=== PATIENT | female | born 1935 | race Caucasian/White ===

== ENCOUNTER 2022-09-13 08:47 | Inpatient (IN) | payer MEDICARE, SELFPAY ==
[2022-09-13] VITALS (130 sets, daily range): BP systolic 86–166; BP diastolic 42–107; PULSE 47–98; RESP 12–29; TEMP 36.8; O2SAT 87–98
[2022-09-13] MEDS: nitroglycerin drip 50 MG/250 ML PREMIX IV (09:00)
--- NOTE | 2022-09-13 09:27 | ECG_ITS ---
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 Measurements Intervals [place] Rate: 79 P: 27 MN: 256 QRS: -6 QRSD: 82 T: 102 QT: 394 QTc: 452 Interpretive Statements SINUS RHYTHM WITH FIRST DEGREE AV BLOCK NONSPECIFIC T-WAVE ABNORMALITY No previous ECG available for comparison Electronically Signed On 09-14-2022 0:24:22 CDT by Dane Calderón M.D. [id number]
--- NOTE | 2022-09-13 09:27 | USCV_ITS ---
Cachorro Sonya Age: 86 Gender: F : 1935 Exam Date: 09/13/2022 10:01 Ordering Phys: Dane Calderón MD ([email or web address]) Technologist: LUIS Exam Location: [facility] Indication: UAP BP: 127 / 57 HR: 76 Rhythm: Sinus Technical Quality: Adequate MEASUREMENTS (Male / Female) Normal Values 2D ECHO LVOT Diameter 2.0 cm LV Ejection Fraction MOD 2C 68.4 % LV Ejection Fraction 2C AL 71.4 % LA Diameter 3.0 cm LA Width 2.9 cm LA Height 5.7 cm RA Width 3.0 cm RA Height 3.9 cm Aorta at Sinotubular Diameter 1.8 cm IVC Diameter 1.9 cm M-MODE Aortic Annulus Diameter 2.9 cm LA Ao Ratio MM 1.0 MV E Point Septal Separation 0.7 cm DOPPLER AV Peak Velocity 194.5 cm/s LVOT Peak Velocity 80.0 cm/s AV Area Cont Eq vti 1.2 cm squared AV Area Cont Eq pk 1.3 cm squared MV Peak Velocity 142.0 cm/s MV Area PHT 5.0 cm squared Mitral E to A Ratio 0.6 MV E' Velocity 42.5 cm/s Mitral E to MV E' Ratio 9.6 Mitral E to LV E' Lateral Ratio 7.2 Mitral E to LV E' Septal Ratio 14.4 TR Peak Velocity 163.4 cm/s TR Peak Gradient 10.7 mmHg TR Mean Velocity 119.4 cm/s TR Mean Gradient 6.2 mmHg TR Velocity Time Integral 41.8 cm TV Peak E Velocity 86.0 cm/s Right Atrial Pressure 3.0 mmHg Pulmonary Artery Systolic Pressu 13.7 mmHg PV Peak Velocity 104.0 cm/s RV Acceleration Time 0.1 s RV Ejection Time 0.3 s RV AcT/ET 0.4 FINDINGS Left Ventricle Normal left ventricular size and systolic function, EF 75 %. Grade I/IV diastolic dysfunction (abnormal relaxation filling pattern), normal to mildly elevated filling pressures. Right Ventricle The right ventricle is normal in size and function. Right Atrium The right atrium is normal in size. Left Atrium Mildly increased left atrial size. Mitral Valve Trace mitral valve regurgitation. Aortic Valve Thickened aortic valve. Aortic valve sclerosis. Tricuspid Valve No gross abnormalities noted Pulmonic Valve Pulmonic valve not well visualized. Pericardium Normal pericardium without effusion. Aorta Normal ascending aorta dimension. IVC Normal inferior vena cava. CONCLUSIONS Normal left ventricular size and systolic function, EF 75 %. Grade I/IV diastolic dysfunction (abnormal relaxation filling pattern), normal to mildly elevated filling pressures. Mildly increased left atrial size. Trace mitral valve regurgitation. Features of aortic valve sclerosis with a peak velocity of 1.94 m/s There is no pericardial effusion. There are no intracardiac masses. No similar previous studies are available for comparison Dr Dane Calderón MD FAC (Electronically Signed) Final Date: 13 September 2022 12:13 S
--- NOTE | 2022-09-13 09:35 | PM.HP ---
Providers/Chief Complaint Admitting Physician: Dane Calderón MD Primary Care Provider: Melissa Baker MD Chief Complaint: Chest Pain History of Present Illness Sonya Ivory is a 86 year old female, transferred to our institution from [facility] emergency room where she presented with complaints of a prolonged episode of chest pain. A provisional diagnosis of unstable angina was made by the ER physician. I was contacted at that point for her to be transferred to our facility for further evaluation management. Ms. Ivory has no similar past medical history. She is a smoker, smokes half to 1 pack a day for the last more than 50 years. For the last 1 week, she been having episodes of chest pain lasting anywhere from 5 to 30 minutes. Last night around 1:00, she woke up with chest pain. The pain started in the left shoulder, radiated to the left side of the neck, to the jaw, to the back between the shoulder blades and then the front. The intensity of the pain was almost 10/10. She was given Nitropaste from the chest wall by the emergency room. Apparently her blood pressure dropped. She was treated with a IV morphine and oxygen. The symptoms gradually subsided. According the patient, she might have had the pain lasting for a total of 2 hours or so. She apparently had recurrent episodes of chest pain while being in the emergency room. For this reason, the ER physician contacted me. The EKG showed normal sinus rhythm with nonspecific ST-T changes in the high lateral leads. Poor R wave progression. Her troponin I's were negative for myocardial injury. Her proBNP was elevated to 950. Her urinalysis showed positive nitrates and the WBCs were too numerous to count. Her white cell count was 12.5 thousand. Hemoglobin hematocrit were within normal limits. PT/INR were within normal limits. BUN and creatinine were 15 and 0.9. This patient has no previous history for coronary disease, myocardial infarction or congestive heart failure. She had 4 episodes of chest pain prior to the last night episode. Each one of them were more or less similar quality but less severe. They were lasting anywhere from 15 to 30 minutes. They may occur with or without exercise. She has no significant family history for atherosclerotic heart disease. She has been fairly active and lives independently. She is not taking any medications on a regular basis at home. According to ER physician, her blood pressure one time went up to 190, when she had the pain. Currently the blood pressure is in the normal range. Review of Systems Narrative: CONSTITUTIONAL: No fever or chills. EYES: No blurring of vision or other visual disturbances lately. ENT: No hoarseness of voice, auditory disturbances or sore throat. CARDIOVASCULAR: As mentioned above. RESPIRATORY: No significant cough. GASTROINTESTINAL: No hematemesis or melena. GENITOURINARY: No dysuria or hematuria. INTEGUMENTARY: No skin rashes or history of skin cancer. NEURO: No transient ischemic attacks or amaurosis. PSYCHIATRIC: No history of psychosis or major depression. HEMATOLOGIC: No bleeding disorders or significant anemia. ENDOCRINE: No history of polyuria or polydipsia. MUSCULOSKELETAL: No recent joint pain or swelling. ALLERGY/IMMUNOLOGY: As mentioned above. Medications/Allergies Home Medications Medication Instructions Recorded Confirmed Last Taken Type miscellaneous medical supply See Rx Instructions miscellaneous 03/16/22 09/13/22 Unknown Rx .COMPLEX #1 ea Vitamin D3 Liquid See Rx Instructions .Route .COMPLEX 09/13/22 09/13/22 Unknown History ascorbic acid-ascorbate See Rx Instructions .Route .COMPLEX 09/13/22 09/13/22 Unknown History calcium-ascorbate sod 500 mg/15 mL oral liquid (Vitamin C) aspirin 325 mg tablet 325 mg PO Q4H PRN Headache 09/13/22 09/13/22 Unknown History cyanocobalamin (vitamin B-12) See Rx Instructions .Route .COMPLEX 09/13/22 09/13/22 Unknown History 1,000 mcg/mL oral drops (Vitamin B-12) Allergies Allergy/AdvReac Type Severity Reaction Status Date / Time naproxen Allergy ALGY-Rash Verified 09/13/22 13:18 PFSH Acute PFSH: Social History Smoking and tobacco status: current every day smoker cigarettes Years cigarettes smoked: 60 Alcohol intake: never Vitals/I&O/Wt Last Vital Signs O2 Del Method 09/13/22 09:00 Weight last 48 hrs Weight 160 lb 14.999 oz Physical Exam Narrative: GENERAL: The patient is alert and oriented times three. Not in any acute distress. HEENT: No significant pallor, icterus or lymphadenopathy.Oral cavity: There are no mucous membrane lesions. Fundus is not visualized NECK: Trachea appears to be central. No masses noted. No JVD or thyromegaly appreciated. RESPIRATORY: Chest is symmetrical. No intercostals muscle retraction or any accessory muscle activation. There is no chest wall tenderness. Breath sounds are heard bilaterally. No rales or rhonchi heard. No evidence of any consolidation. BREASTS: Deferred. HEART: The heart sounds are normal. No S3 or S4. No significant murmurs. No pericardial rub ABDOMEN: No vessel pulsations or distention. No tenderness. No organomegaly appreciated. Bowel sounds are normally heard. : Deferred. RECTAL: Deferred. LYMPHATIC: No lymphadenopathy noted in the neck. EXTREMITIES: No edema or cyanosis. No clubbing. MUSCULOSKELETAL: No acute joint deformities or swelling SKIN: Left forearm has an area of ecchymosis, developed when the EMT tried to insert an IV. NEUROPSYCHIATRIC: The patient is alert and oriented x3. Appears to be in a good mood. No tremors or rigidity noted. Data : 09/13/22 09:55 CXR: My impression: Reported as Radiologist's impression: Reported as normal cardiac silhouette with no lung infiltrates. Atherosclerotic changes in the aorta. EKG 1: My Interpretation: Normal sinus rhythm with a heart rate of [address]-T changes in the high lateral leads, 1 and aVL. Poor R wave progression. [address] changes in lead V5 and V6. 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 The medical Normal cardiac enzymes rule out myocardial infarction. An echocardiogram would be helpful to evaluate the LV function and rule out renal pathology. Patient be treated with a subcu Lovenox, beta-wen, aspirin and statin. She may require a cardiac catheterization, to further evaluate the coronary status. After reviewing the echocardiogram and the blood test, further management decisions will be made. Clinically she has no evidence of any aortic dissection. The chest x-ray did not reveal any dilatation of the aorta. The fact that she been having similar chest pain off and on for for the last 1 week also may speak against a PE. She has no significant shortness of breath or hypoxia. Her oxygen saturation is 94% on room air. (2) Elevated blood pressure reading: Currently her blood pressure is in the normal range. Her blood pressure will be closely monitored on telemetry. (3) Elevated brain natriuretic peptide (BNP) level: This is suggestive of LV strain. She has no evidence of any overt heart failure. We will continue to monitor her clinical status. (4) UTI (urinary tract infection): She has borderline elevation of the white cell count and WBCs too numerous to count in the urine. I may repeat a CBC and a urinalysis. Urine will be sent for culture and sensitivity. Will be started appropriately biotics. Plan We also will be checking the thyroid profile and lipid profile. Based on the clinical progress and the results of the above, further management decisions will be made. Attestations Medical Necessity Statement*: Patient may require at least 2 midnight stay for further management of her condition. Coding Level of Care Code Acute Wide Area Network Systems Administrator for Raza Horan History Detailed Exam Detailed Medical Decision Making High Complexity Diagnoses 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 I25.110 Elevated blood pressure reading R03.0 Elevated brain natriuretic peptide (BNP) level R79.89 UTI (urinary tract infection) N39.0
[2022-09-13 10:04] LABS: Basophils # 0.1 10^3/uL (0.0-0.1); Basophils % 0.8 %; Eosinophils # 0.3 10^3/uL (0.0-0.8); Eosinophils % 3.2 %; Hematocrit 43.4 % (37.0-47.0); Hemoglobin 14.2 g/dL (11.5-15.3); Lymphocytes % 19.9 %; Mean Corpuscular HGB Conc 32.7 g/dL (30.0-36.0); Mean Corpuscular Hemoglobin 33.5 pg (28.0-34.0); Mean Corpuscular Volume 102.4 fl (81-99); Monocytes # 0.8 10^3/uL (0.2-0.9); Monocytes % 7.5 %; Neutrophils # 6.89 10^3/uL (1.8-7.7); Neutrophils % 68.2 %; Nucleated Red Blood Cells % 0 %; Platelet Count 228 10^3/cmm (130-400); Red Blood Count 4.24 10^6/uL (4.1-5.3); Red Cell Distribution Width 12.2 % (12.1-15.1); White Blood Count 10.1 10^3/uL (4.0-10.0)
[2022-09-13] MEDS: D5-NS 0.45% + KCL 20 mEq 20 MEQ/1,000 ML BAG 75 MEQ IV ×2 (10:05→22:36)
[2022-09-13] MEDS: aspirin 81 mg EC Tablet 162 MG PO (10:08)
[2022-09-13 10:27] LABS: Bilirubin Urine Neg (Negative); Blood Urine Neg (Negative); Glucose Urine UA Norm (Normal); Ketones Urine Negative (Negative); Nitrate Urine Positive (Negative); Protein Urine Neg (Negative); Urine Appearance Clear (CLEAR); Urine Color Yellow (Yellow); Urobilinogen Urine Norm (Negative); pH Urine 5 (5-7)
[2022-09-13 10:28] LABS: Add Urine Microscopic? YES; Leukocyte Esterase Urine 1+ (Negative)
[2022-09-13 10:34] LABS: Troponin T (5th) Once 34 ng/L (0-10)
[2022-09-13 10:43] LABS: Cholesterol 168 mg/dL (0-200); HDL Cholesterol 41 mg/dL (60-100); LDL Cholesterol Calculated 104 mg/dL (50-129); LDL HDL Ratio 2.54 RATIO (0.00-3.22); Thyroid Stimulating Hormone 5.34 uIU/mL (0.27-4.20); Triglycerides 117 mg/dL (0-150)
[2022-09-13 10:45] LABS: RBC Urine 0-4 /hpf (0-2)
[2022-09-13 10:46] LABS: Add Urine Culture? Yes; Bacteria Urine M /hpf; Squamous Epithelial Cell Urine 0-4 /hpf (0-5)
--- NOTE | 2022-09-13 12:06 | PC.CHAP ---
Pastoral Care Encounter/Spiritual Assessment Type of Contact [] Declined computed tomography technologist visit [] Patient/Family/Request visit [] Outpatient visit [] Follow-up visit [] Physician referral [] Code/Alert [] Routine visit [] Staff referral [] Actively dying [] Patient sleeping [] Family support [] [] Out of room [] Palliative care [] [] Receiving care in room [] Pre-surgical visit [] Trauma [] Long length of stay [x] ICU visit [] Other: Relational/Emotional Strength [] Patient feels connected with others/family/visitors/staff [] Distress [] Loneliness/isolation [] Abandonment Spirituality of Patient [] Person of Litzy [] Attends Yarsani of their Litzy [] Believes in Prayer [] Reads Bible or Anabaptist materials [] There are Spiritual issues to be addressed Unarmed Security Officer Interventions [x] Prayer [] Active listening [] Non-anxious presence [] Spiritual/emotional support [] Crisis/trauma care [] Spiritual counseling [] Bereavement support [] Provided bereavement packet [] Provided Bible/devotional materials [] Provided toy/stuffed animal, coloring book to patient or family member [] Provided Communion [] Anointing/[place] [] Salvation [] Completed spiritual assessment [] Other: Impact on Illness or Injury [] Angry [] Fearful [] Anxious [] Often cries [] Exhaustion [] Unable to work [] Unable to attend catholic [] Unable to walk/stand [] Unable to read [] Unable to drive [] Unable to eat/drink [] Unable to sleep [] Unable to be with family [] Patient intubated [] Other: Summary Time spent with patient
--- NOTE | 2022-09-13 13:25 | PC.PHAR ---
PT STATES SHE TAKES NO RX MEDICATIONS-PT STATES JUST TAKES OTC MEDICATIONS PRN
[2022-09-13] MEDS: metoprolol tartrate 25 mg Tablet PO (13:41)
[2022-09-13] MEDS: enoxaparin 80 mg/0.8 mL Syringe 75 MG SUBCUT (17:16)
--- NOTE | 2022-09-13 17:39 | PC.NURSE ---
Patient resting in bed currently with nitro gtt running at 10mcg. No complaints of chest pain. Metoprolol given per Dr. Calderón at 1341 PO, patient remains bradycardic ranging from 47-62, Called Dr. Calderón to inform him, he's okay with rate, wants to be called before giving night time dose. Patient will be NPO after midnight due to scheduled LHC tomorrow.
--- NOTE | 2022-09-13 17:43 | PC.NURSE ---
Nitro gtt running upon arrival from [facility] at 10mcg/min
[2022-09-13] MEDS: cefTRIAXone 1,000 MG in sodium chloride 0.9% (plus) 50 ML 100 MG IV (18:09)
[2022-09-13 19:00] LABS: Troponin T (5th) Once 31 ng/L (0-10)
--- NOTE | 2022-09-13 20:23 | PC.NURSE ---
2019 Dr Tucker contacted concerning patient's scheduled (2099) 25 mg PO metoprolol medication; instructed to hold medication at this time
[2022-09-13 21:22] LABS: Free T4 Free Thyroxine 1.09 ng/dL (0.82-1.77)
[2022-09-13] MEDS: temazepam 15 mg Capsule PO (21:39)
[2022-09-14] VITALS (58 sets, daily range): BP systolic 87–165; BP diastolic 39–72; PULSE 46–90; RESP 6–32; TEMP 36.5–36.8; O2SAT 88–100
[2022-09-14 03:15] LABS: Basophils % 0.2 %; Eosinophils # 0.2 10^3/uL (0.0-0.8); Eosinophils % 1.7 %; Hematocrit 42.7 % (37.0-47.0); Hemoglobin 13.8 g/dL (11.5-15.3); Mean Corpuscular HGB Conc 32.3 g/dL (30.0-36.0); Mean Corpuscular Hemoglobin 33.4 pg (28.0-34.0); Mean Corpuscular Volume 103.4 fl (81-99); Mean Platelet Volume 12.3 fL (7.4-10.4); Monocytes # 0.9 10^3/uL (0.2-0.9); Monocytes % 7.4 %; Neutrophils # 9.42 10^3/uL (1.8-7.7); Neutrophils % 74.2 %; Nucleated Red Blood Cells % 0 %; Platelet Count 230 10^3/cmm (130-400); Red Blood Count 4.13 10^6/uL (4.1-5.3); Red Cell Distribution Width 12.2 % (12.1-15.1); White Blood Count 12.7 10^3/uL (4.0-10.0)
[2022-09-14 03:47] LABS: Anion Gap 10.5 (5-19); Blood Urea Nitrogen 16 mg/dL (8-23); C Reactive Protein 30.3 mg/L (0.0-4.9); Calcium 8.6 mg/dL (8.5-10.5); Carbon Dioxide 24 mmol/L (22-29); Chloride 103 mmol/L (98-107); Glucose 113 mg/dL (65-115); Osmolality Calculated 278 mOsm/kg (285-295); Potassium 4.5 mmol/L (3.5-5.1); Sodium 133 mmol/L (136-145)
[2022-09-14 03:51] LABS: Procalcitonin 0.02 ng/mL (0-0.5)
--- NOTE | 2022-09-14 06:52 | PC.NURSE ---
Pt to general labor.
--- NOTE | 2022-09-14 06:55 | PC.NURSE ---
Bedside report completed with FREEMAN Torres
--- NOTE | 2022-09-14 07:00 | XACV_ITS ---
Exam Room: [facility] Ht: 163 cm Wt: 73 kg BSA: 1.83 m2 Gender: Female : 1935 Any Known Allergies: Other Exam Priority: Routine Procedure(s): Procedure Description: Diagnostic procedure Procedure Description: PCI procedure Procedure Description: Left Heart Catheterization Procedure Description: Drug Eluting Coronary Stent Procedure Description: Coronary Angiography Diagnostic Cath Status: Elective Diagnostic Findings * Left main is a medium caliber vessel with no significant stenotic lesions. * The left anterior descending artery is a medium caliber vessel which appears to wrap around the LV apex minimally. The proximal LAD was found to have a tight 98% stenosis. The mid and distal LAD was found to have minimal intimal irregularities. * The left circumflex artery is a medium caliber vessel which appeared to give off a high obtuse marginal branch. Mild diffuse disease is noted in the proximal segment of the artery. No other significant stenotic lesions. * The right coronary artery has a low and posterior takeoff. The artery was found to have no significant stenotic lesions. Some intimal irregularities are noted in the distal segment of the artery. PCI Status: Urgent PCI LVEF Assessed: No PCI Indication: NSTE - ACS Interventional Findings * The proximal LAD was primarily stented with a 3 mm x 12 mm drug-eluting stent. The end result was excellent. Decision for PCI with Surgical Consult: No PCI for Multi-vessel Disease: No Conclusions 1. This 86-year-old white female with no significant past medical history, presented with a features of unstable angina and non-ST elevation myocardial infarction. Echocardiogram was unremarkable. EKG showed some nonspecific ST-T changes. In view of the patient's presenting symptoms and the abnormal objective findings. for further evaluation of the coronary status, a cardiac catheterization was recommended. Patient underwent left heart catheterization with left and right coronary angiogram today. The findings are as follows.. 2. The findings are as follows. 3. Left main is a medium caliber vessel with no significant stenotic lesions. High-grade 98% gnosis in the proximal LAD. Mild diffuse disease in the other vessels. The right coronary artery was found to have a low and posterior takeoff. LVEDP was 20 mmHg. Patient angiogram findings, it was thought to be appropriate to consider PCI of the LAD lesion. I reviewed and discussed the cardiac catheterization data with the Dr. Tucker. Dr. Tucker concurred with this plan and took over further management of this patient at this point. Diagnostic RX Recommendation: PCI w/o planned CABG LV EDP: 17 mmHg Left Ventriculography Findings: * LV gram was not performed because of the concern about the dye overload. LVEDP was 70 mmHg. Pressures Phase:Rest AO : 124 / 50 ( 78 ) @ 8:22:00 AM 92 / 59 ( 75 ) @ 8:24:00 AM 163 / 58 ( 102 ) @ 8:34:00 AM 161 / 57 ( 99 ) @ 8:34:00 AM 113 / 41 ( 68 ) @ 8:55:00 AM LV : 153 / -19 / 17 @ 8:33:00 AM 153 / -17 / 15 @ 8:34:00 AM Valves Phase:DefaultPhase AV : 0.0 @ 8:19:14 AM AV Mean Gradient: 0.0 @ 8:19:14 AM Clinical Evaluation EBL: 5mL-10mL Procedural Details Pre-Procedure Time Out. Identified patient by full name and date of as verbalized by the patient/guarantor. Does the consent match the physician's order: Yes. Accurate & Complete Informed Consent: Yes. Inpatient/Outpatient History & Physical on Chart: Yes. If H&P is completed, is and addenduem needed: No; If yes, is the addendum complete: N/A. Visualize and Verify Site with Patient/Guarantor: N/A. Relevant Radiology Images available: Yes. Pre-op teaching completed and patient verbalized understanding. The risks, benefits, and alternatives of sedation and/or procedure were discussed by physician. The patient agrees to continue. Procedure started. Current Diagnosis : NSTEMI. [facility] Clinical Fraility Score: 3: Managing Well. Bellman Driver Indications: ACS > 24 hours. Chest Pain Symptom Assessment: Atypical Angina. Correct patient, site and procedure confirmed by cath team. Current diagnosis: NSTEMI. PERRLA. Strong, equal hand lining finisher bilaterally. Lungs clear x 5 lobes. IV Site on Arrival: 18 gauge in the left anticubital. IV Fluids: 0.9% NaCl at KVO. 0 mL infused prior to lab coordinator. Oxygen started at 2liters/min via nasal canula. bilateral groins was prepped with chloroprep then draped in the usual sterile fashion. Physician notified. Baseline sample Acquired. HR: 72 BPM. Physician arrived. Physician scrubbed in. Immediate Pre-Procedure Time Out. Correct Patient: Yes; Correct Procedure: Yes; Correct Site: Yes; Correct Patient Position: Yes; Correct Supplies: Yes; Dried Flammable Prep: Yes; Blood Products Available: N/A;. Lidocaine 1% infiltrated to the right groin. Arterial access obtained with micropuncture set. A 5 argent[place] JL4 catheter in over wire. Multiple views taken of left coronary artery. Catheter removed over the standard wire. A 5 arg[place] JR4 catheter in over wire. Multiple views taken of right coronary artery. Catheter removed over the standard wire. A 5 argentine Angled Pig catheter in over wire. EDP Sample taken: LV 153/-20,17; HR: 85 BPM; SpO2: 96%. Pullback taken: LV 153/-18,15; AO 163/58(102); Mean: 0mmHg, Peak to Peak: 0mmHg, SEP: 7sec/min; HR: 85 BPM; SpO2: 96%. Catheter removed over the standard wire. Physician scrubbed out. Side port of sheath attached to Normal Saline flush at KVO to maintain patency. Dr. Tucker scrubbed in. Sheath upsized to a 6 Fr. 6 arg[place] XB 3 guide catheter was inserted over the wire. [place] guidewire was advanced through the guide catheter to lesion in the prox LAD. Inflation Number : 1 Onelia Ledezma JOSE 3.0X12 CHANTEL -Lot Number# [id number] EXP: 09/12/2024 was prepped and advanced across the Prox LAD. The stent was deployed at 16 JESUS for 0:31 seconds. Stent balloon out over wire. Wire out. Guide catheter out. A Suture was successful obtaining hemostatsis at the Right Femoral artery insertion site. Arterial sheath flushed and connected to tranducer and pressure bag with heparinized saline. Post Procedure: Pulses reassessed and unchanged. PERRLA. Strong, equal hand lining finisher bilaterally. No VTE prophylaxis required. Total IV fluids: 200 mL. PCI Indication: NSTE. Complications: None. Estimated blood loss: 5mL-10mL. Responsiveness - Normal response to verbal stimuli; alert and oriented, PERRLA. Airway - Unaffected, no intervention required; spontaneous ventilation. Circulation: W/N/L, pulses unchanged. Nausea/Vomiting: No. Procedure completed. Vital chart was stopped. Patient transferred by bed to ICU. Access Site Site: Right Femoral artery Sheath Size: 5 Fr Hemostasis Method: Suture Hemostasis Success: Successful Procedure Medications Start: 7:11 AM Stop: 7:11 AM Medication: Versed Amount: 1 mg Route: I.V. Start: 7:11 AM Stop: 7:11 AM Medication: Fentanyl Amount: 50 mcg Route: I.V. Start: 7:20 AM Stop: 7:20 AM Medication: 0.9% Saline Amount: 250 ml Route: I.V. bolus Start: 7:29 AM Stop: 7:29 AM Medication: Heparin Amount: 1500 units Route: I.V. Start: 7:40 AM Stop: 7:40 AM Medication: Versed Amount: 1 mg Route: I.V. Start: 7:40 AM Stop: 7:40 AM Medication: Fentanyl Amount: 50 mcg Route: I.V. Start: 7:53 AM Stop: 7:53 AM Medication: Heparin Amount: 3500 units Route: I.V. Start: 8:08 AM Stop: 8:08 AM Medication: Plavix Amount: 600 mg Route: P.O. I, the attending physician, have reviewed and verified all procedure medications. Yes, all medications given per verbal order History/Risk Factors Hypertension: No Dyslipidemia: No Peripheral Arterial Disease (PAD): No Myocardial Infarction (NV): No Obesity: No Renal Disease: No Prior Interventions PCI: No CABG: No Valve Surgery: No Report Signatures Diagnostic Workflow Finalized by Dr Dane Calderón MD [facility] on 09/14/2022 11:41 PM Interventional Workflow Finalized by Dr. Jaden Tucker MD on 09/14/2022 08:24 AM
--- NOTE | 2022-09-14 07:06 | P.HPUD_ITS ---
Surgery/Procedure H&P Update DATE OF PROCEDURE: September 14, 2022 DATE H&P PERFORMED: 09/13/22 H&P UPDATE INFORMATION: I have reviewed H&P completed within last 30 days, I have examined patient prior to procedure and No changes to prior documentation PREOP DIAGNOSIS: NSTEMI PRIMARY INDICATION FOR PROCEDURE: NSTEMI/UAP PLANNED PROCEDURE: Operation Date: 09/14/22 07:00 Proposed Procedures p [facility] 55248,R07.9,I44.20(Left) - Dane Calderón MD PATIENT REASSESSED PRIOR TO SEDATION, WITH NO CHANGE NOTED: Yes PHYSICAL EXAM: alert, oriented x 3 and clear to auscultation bilaterally AIRWAY EVAL/ANESTHESIA PLAN: normal airway, see other exam findings, ASA II, Local Anesthesia, Risks, benefits & alternatives of sedation and/or procedure discussed and Patient agrees to continue as planned
--- NOTE | 2022-09-14 08:23 | PC.NURSE ---
Pt back from laboratory administrative director. No change in heart rhythm. Sheath in right groin. No bleeding or hematomas noted. Right dorasalis pedal pulse palpable.
--- NOTE | 2022-09-14 09:13 | PM.CONSULT ---
Providers/Reason For Consult Consulting Physician/Specialty*: Ekta Maddox, Internal Medicine Reason for Consult*: UTI Attending Physician: Dane Calderón MD Primary Care Provider: Melissa Baker MD History of Present Illness History of Present Illness Sonya Ivory is a 86 year old female with no significant past medical history except that she is half to 1 pack/day smoker for the last 50 years. She came to our hospital from [facility] emergency room complaining of prolonged episode of chest pain. Patient was admitted for unstable angina. Patient did have a urinalysis done at [facility] which showed positive nitrates and numerous WBCs to count. She was given 1 dose of IV Rocephin for she arrived at our facility. Hospitalist has been consulted for medical management for this patient. Patient states that she did have urinary symptoms dysuria and pelvic pain few weeks ago however it started to get better. She says right now she is asymptomatic. Urinalysis again positive at our facility. Urine culture is pending. She has been started on ceftriaxone. At this time patient denies any pain or pressure in pelvic area. She says she only has had 2 UTIs in her whole life and does not frequently get them. She is unsure how she may have caught one at this time. She denies any other medical problems at this time. She states she lives alone at home. Does not use oxygen at home either. Patient underwent cardiac catheterization today and received a drug-eluting stent to LAD. She is being seen postprocedure at this time. Medications/Allergies Home Medications Medication Instructions Recorded Confirmed Last Taken Type miscellaneous medical supply See Rx Instructions miscellaneous 03/16/22 09/13/22 Unknown Rx .COMPLEX #1 ea Vitamin D3 Liquid See Rx Instructions .Route .COMPLEX 09/13/22 09/13/22 Unknown History ascorbic acid-ascorbate See Rx Instructions .Route .COMPLEX 09/13/22 09/13/22 Unknown History calcium-ascorbate sod 500 mg/15 mL oral liquid (Vitamin C) aspirin 325 mg tablet 325 mg PO Q4H PRN Headache 09/13/22 09/13/22 Unknown History cyanocobalamin (vitamin B-12) See Rx Instructions .Route .COMPLEX 09/13/22 09/13/22 Unknown History 1,000 mcg/mL oral drops (Vitamin B-12) Allergies Allergy/AdvReac Type Severity Reaction Status Date / Time naproxen Allergy ALGY-Rash Verified 09/13/22 13:18 Current Medications Generic Name Dose Route Start Last Admin Trade Name [place] PRN Reason Stop Dose Admin Aspirin 162 mg 09/13/22 10:00 09/13/22 10:08 Aspirin 81 Mg Ec Tablet PO 162 mg DAILY DYLAN Administration Enoxaparin Sodium 75 mg 09/13/22 18:00 09/13/22 17:16 Enoxaparin 80 Mg/0.8 Ml Syringe SUBCUT 75 mg Q12H DYLAN Administration Potassium Chloride/Dextrose/Sod Cl 20 meq in 1,000 mls @ 75 mls/hr 09/13/22 09:30 09/13/22 10:05 D5-Ns 0.45% + Kcl 20 Meq IV 75 mls/hr .[id number] DYLAN Administration Nitroglycerin/Dextrose 50 mg in 250 mls @ 0 mls/hr 09/13/22 13:45 09/13/22 09:00 Nitroglycerin Drip IV 10 mcg/min .Q0M DYLAN 3 mls/hr Administration Protocol Per Protocol Ceftriaxone Sodium 1,000 mg/ 50 mls @ 100 mls/hr 09/13/22 18:15 09/13/22 18:09 Sodium Chloride IV 100 mls/hr Q24H DYLAN Administration Protocol PFSH Acute PFSH: Social History Smoking and tobacco status: current every day smoker cigarettes Years cigarettes smoked: 60 Alcohol intake: never Vitals/I&O/Wt Last Vital Signs Pulse 63 09/13/22 18:00 Resp 24 H 09/13/22 18:00 BP 126/60 09/13/22 18:00 Pulse Ox 95 09/13/22 18:00 O2 Del Method 09/13/22 10:17 O2 Flow Rate 2 09/13/22 10:17 09/13/22 09/13/22 09/13/22 06:59 14:59 22:59 Intake Total 240 / 240 240 / 480 Balance 240 / 240 240 / 480 Weight last 48 hrs Weight 73 kg Physical Exam Narrative: General: Alert oriented x3, patient seen laying in bed appearing comfortable at this time HEENT: Normocephalic, atraumatic, EOMI, breathing 2 L nasal cannula. Cardio: Regular rate rhythm, normal S1-S2, Respiratory: Good bilateral air entry, no wheezes no rhonchi appreciated GI: Abdomen soft, nontender, nondistended, bowel sounds +, pelvic. Nontender to palpation Behavior: Appropriate and cooperative Extremities: No lower extremity edema present. 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 Check lipid profile, TSH, hemoglobin A1c ? Continue IV ceftriaxone 1 g daily ? Leukocytosis most likely secondary to stress response versus UTI ? We will de-escalate antibiotics pending culture data. ? Continue IV antibiotics for now ? Rest of management as per primary team ? Continue patient on aspirin, Plavix, Lopressor 25 twice daily ? Patient appears euvolemic at this time. Echo reviewed. EF 75%. Grade 1 diastolic dysfunction present. -Check repeat labs CBC and BMP in AM. - Slight hyponatremia noted. Check urine sodium. Full code DVT prophylaxis: Patient was on therapeutic Lovenox. We will switch to DVT prophylaxis dose once okay with cardiology. Consult Attestations Medical Necessity Statement: Patient will need to stay in the hospital today for IV antibiotics. Pending culture data will de-escalate. Most likely will be stable for discharge from medical standpoint in a.m. 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
[2022-09-14] MEDS: ondansetron 2 mg/ML SDV 2 mL 4 MG IVP (09:20)
[2022-09-14] MEDS: acetaminophen 325 mg Tablet 650 MG PO (09:59)
[2022-09-14] MEDS: aspirin 81 mg Chew Tablet PO (10:00)
[2022-09-14] MEDS: metoprolol tartrate 25 mg Tablet PO ×2 (10:02→20:09)
[2022-09-14] MEDS: fentaNYL 50 mcg/mL INJ 2mL IVP (10:54)
--- NOTE | 2022-09-14 11:45 | PC.NURSE ---
RIght groin sheath removed intact. Pressure held hemostatis obtained. No hematomas or bleeding noted. Pt tolerated well. Gauze and biocclusive dressing applied. Pt intructed to continue to keep that right leg still.
--- NOTE | 2022-09-14 12:43 | PC.CHAP ---
Pastoral Care Encounter/Spiritual Assessment Type of Contact [] Declined outsoles channel opener visit [] Patient/Family/Request visit [] Outpatient visit [] Follow-up visit [] Physician referral [] Code/Alert [x] Routine visit [] Staff referral [] Actively dying [] Patient sleeping [] Family support [] [] Out of room [] Palliative care [] [] Receiving care in room [] Pre-surgical visit [] Trauma [] Long length of stay [x] ICU visit [] Other: Relational/Emotional Strength [] Patient feels connected with others/family/visitors/staff [] Distress [] Loneliness/isolation [] Abandonment Spirituality of Patient [] Person of Litzy [] Attends Hinduism of their Litzy [] Believes in Prayer [] Reads Bible or Denominational materials [] There are Spiritual issues to be addressed Luggage Attendant Interventions [x] Prayer [] Active listening [] Non-anxious presence [] Spiritual/emotional support [] Crisis/trauma care [] Spiritual counseling [] Bereavement support [] Provided bereavement packet [] Provided Bible/devotional materials [] Provided toy/stuffed animal, coloring book to patient or family member [] Provided Communion [] Anointing/[place] [] Salvation [x] Completed spiritual assessment [] Other: Impact on Illness or Injury [] Angry [] Fearful [] Anxious [] Often cries [] Exhaustion [] Unable to work [] Unable to attend anglican [] Unable to walk/stand [] Unable to read [] Unable to drive [] Unable to eat/drink [] Unable to sleep [] Unable to be with family [] Patient intubated [] Other: Summary Time spent with patient
--- NOTE | 2022-09-14 13:00 | PC.NURSE ---
Report given to FREEMAN Cardenas. Care transferred.
[2022-09-14] MEDS: sodium chloride 0.9% 1,000 ML 100 ML IV ×2 (15:09→23:13)
[2022-09-14 16:41] LABS: Partial Thromboplastin Time 28.6 SECONDS (23.9-36.7)
--- NOTE | 2022-09-14 17:24 | PM.PN ---
Subjective Subjective: The patient underwent a cardiac regurgitation this morning. 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 She underwent PCI of this lesion. Currently she seems to be stable. Medications: Medication Review Details: Current Medications Acetaminophen (Acetaminophen 325 Mg Tablet) 650 mg PO Q6H PRN PRN Reason: MILD PAIN Last Admin: 09/14/22 09:59 Dose: 650 mg Al Hydrox/Mg Hydrox/Simethicone (Ejkj-Pcq-Ziewdxvig-El 30 Ml Udc) 30 ml PO Q15M PRN PRN Reason: INDIGESTION Alprazolam (Alprazolam 0.5 Mg Tablet) 0.25 mg PO TID PRN PRN Reason: ANXIETY Aspirin (Aspirin 81 Mg Chew Tablet) 81 mg PO DAILY [facility] Last Admin: 09/14/22 10:00 Dose: 81 mg Atropine Sulfate (Atropine 1 Mg/Ml Sdv 1 Ml) 0.5 mg IVP PRN PRN PRN Reason: Symptomatic bradycardia Clopidogrel Bisulfate (Clopidogrel 75 Mg Tablet) 75 mg PO DAILY [facility] Fentanyl (Fentanyl 50 Mcg/Ml Inj 2ml) 50 mcg IVP PRN PRN PRN Reason: sheath pull Last Admin: 09/14/22 10:54 Dose: 50 mcg Ceftriaxone Sodium 1,000 mg/ (Sodium Chloride) 50 mls @ 100 mls/hr IV Q24H [facility]; Protocol Last Infusion: 09/14/22 15:09 Dose: Infused Sodium Chloride (Sodium Chloride 0.9%) 1,000 mls @ 100 mls/hr IV .Q10H [facility] Last Admin: 09/14/22 15:09 Dose: 100 mls/hr Magnesium Hydroxide (Magnesium Hydroxide 30 Ml Udc) 30 ml PO DAILY PRN PRN Reason: CONSTIPATION Metoprolol Tartrate (Metoprolol Tartrate 25 Mg Tablet) 25 mg PO BID@0900,2100 [facility] Last Admin: 09/14/22 10:02 Dose: 25 mg Naloxone HCl (Naloxone 0.4 Mg/Ml Sdv) 0.1 mg IVP Q2M PRN PRN Reason: RESPIRATORY RATE < 8/MIN Nitroglycerin (Nitroglycerin 0.4 Mg Sublingual Tablet) 0.4 mg SUBLINGUAL Q5M PRN PRN Reason: CHEST PAIN Ondansetron HCl (Ondansetron 2 Mg/Ml Sdv 2 Ml) 4 mg IVP Q6H PRN PRN Reason: NAUSEA AND VOMITING Last Admin: 09/14/22 09:20 Dose: 4 mg Temazepam (Temazepam 15 Mg Capsule) 15 mg PO BEDTIME PRN PRN Reason: INSOMNIA Last Admin: 09/13/22 21:39 Dose: 15 mg Vitals/I&O/Wt Last Vital Signs Temp 98.3 F 09/14/22 08:30 Pulse 46 L 09/14/22 14:00 Resp 10 L 09/14/22 12:45 BP 102/45 09/14/22 12:45 Pulse Ox 97 09/14/22 12:45 O2 Del Method 09/14/22 12:45 O2 Flow Rate 2 09/14/22 12:45 09/14/22 09/14/22 09/14/22 06:59 14:59 22:59 Intake Total 6 / 1577.75 880 / 880 50 / 930 Output Total 175 / 350 Balance -169 / 1227.75 880 / 880 50 / 930 Weight last 48 hrs Weight 164 lb 3.91 oz Weight 160 lb 14.999 oz Physical Exam Narrative: GENERAL: The patient is alert and oriented times three. Not in any acute distress. HEENT: No significant pallor, icterus or lymphadenopathy.Oral cavity: There are no mucous membrane lesions. Fundus is not visualized NECK: Trachea appears to be central. No masses noted. No JVD or thyromegaly appreciated. RESPIRATORY: Chest is symmetrical. No intercostals muscle retraction or any accessory muscle activation. There is no chest wall tenderness. Breath sounds are heard bilaterally. No rales or rhonchi heard. No evidence of any consolidation. BREASTS: Deferred. HEART: The heart sounds are normal. No S3 or S4. No significant murmurs. No pericardial rub ABDOMEN: No vessel pulsations or distention. No tenderness. No organomegaly appreciated. Bowel sounds are normally heard. : Deferred. RECTAL: Deferred. LYMPHATIC: No lymphadenopathy noted in the neck. EXTREMITIES: Patient has no hematoma bleeding from the right groin. MUSCULOSKELETAL: No acute joint deformities or swelling SKIN: Left forearm has an area of ecchymosis, developed when the EMT tried to insert an IV. NEUROPSYCHIATRIC: The patient is alert and oriented x3. Appears to be in a good mood. No tremors or rigidity noted. 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 Clinically seems to be stable with no recurrence of chest pain. We will continue on the current medications including Plavix. (2) Elevated blood pressure reading: Currently her blood pressure is in the normal range. Her blood pressure will be closely monitored on telemetry. (3) Elevated brain natriuretic peptide (BNP) level: This is suggestive of LV strain. She has no evidence of any overt heart failure. We will continue to monitor her clinical status. (4) UTI (urinary tract infection): Consult from Dr Maddox is greatly appreciated. Will follow recommendations Plan We will check the BMP in the CBC in the morning. If the patient continues remain stable, may discharge home tomorrow. 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
[2022-09-14] MEDS: cefTRIAXone 1,000 MG in sodium chloride 0.9% (plus) 50 ML 100 MG IV (17:49)
[2022-09-14] MEDS: temazepam 15 mg Capsule PO (23:10)
[2022-09-15] VITALS (16 sets, daily range): BP systolic 100–171; BP diastolic 34–68; PULSE 52–71; RESP 15–24; TEMP 36.6–36.9; O2SAT 92–99
[2022-09-15 02:49] LABS: Basophils % 0.2 %; Eosinophils # 0.3 10^3/uL (0.0-0.8); Eosinophils % 2.4 %; Hematocrit 41.2 % (37.0-47.0); Hemoglobin 13.5 g/dL (11.5-15.3); Lymphocytes # 2.4 10^3/uL (0.8-4.8); Lymphocytes % 18.8 %; Mean Corpuscular HGB Conc 32.8 g/dL (30.0-36.0); Mean Corpuscular Hemoglobin 33.7 pg (28.0-34.0); Mean Corpuscular Volume 102.7 fl (81-99); Mean Platelet Volume 12.3 fL (7.4-10.4); Monocytes % 7.8 %; Neutrophils # 8.96 10^3/uL (1.8-7.7); Neutrophils % 70.3 %; Nucleated Red Blood Cells % 0 %; Platelet Count 221 10^3/cmm (130-400); Red Blood Count 4.01 10^6/uL (4.1-5.3); Red Cell Distribution Width 12.4 % (12.1-15.1); White Blood Count 12.7 10^3/uL (4.0-10.0)
[2022-09-15 04:16] LABS: Anion Gap 9.9 (5-19); Blood Urea Nitrogen 14 mg/dL (8-23); Calcium 8.5 mg/dL (8.5-10.5); Carbon Dioxide 25 mmol/L (22-29); Chloride 102 mmol/L (98-107); Glucose 89 mg/dL (65-115); Osmolality Calculated 276 mOsm/kg (285-295); Potassium 3.9 mmol/L (3.5-5.1); Sodium 133 mmol/L (136-145)
--- NOTE | 2022-09-15 08:18 | P.PN_ITS ---
Subjective Subjective: Seen this morning. No acute events overnight. Patient sitting up comfortably in chair on room air at this time. She is having breakfast. Asymptomatic. Urine culture did not show any growth. Vitals/I&O/Wt Last Vital Signs Temp 98.0 F 09/15/22 04:00 Pulse 64 09/15/22 06:00 Resp 20 H 09/15/22 06:00 BP 129/48 09/15/22 06:00 Pulse Ox 98 09/15/22 06:00 O2 Del Method 09/15/22 04:00 O2 Flow Rate 1 09/15/22 04:00 09/14/22 09/15/22 09/15/22 22:59 06:59 14:59 Intake Total 170 / 1050 806.667 / 1856.667 50 / 50 Output Total 175 / 175 150 / 325 Balance -5 / 875 656.667 / 1531.667 50 / 50 Weight last 48 hrs Weight 74.5 kg Weight 74.5 kg Weight 73 kg Physical Exam Narrative: General: Alert oriented x3, patient seen sitting up in chair HEENT: Normocephalic, atraumatic, EOMI, room air Cardio: Regular rate rhythm, normal S1-S2, Respiratory: Good bilateral air entry, no wheezes no rhonchi appreciated GI: Abdomen soft, nontender, nondistended, bowel sounds +, Nontender to palpation Behavior: Appropriate and cooperative Extremities: No lower extremity edema present. 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 Lipid profile complete. Tsh 5.34, Free T4 1.09 ? Leukocytosis most likely secondary to stress response - Pt may go home on cefpodoxime 200 bid to complete antibiotic course. I have ordered script for her. ? Rest of management as per primary team ? Continue patient on aspirin, Plavix, Lopressor 25 twice daily ? Patient appears euvolemic at this time. Echo reviewed. EF 75%. Grade 1 diastolic dysfunction present. - Slight hyponatremia noted. Check urine sodium. Pt may follow up with PCP for this and have repeat BMP in 3-4 days. - Medicine will sign off. 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
[2022-09-15] MEDS: clopidogrel 75 mg Tablet PO (08:32)
[2022-09-15] MEDS: metoprolol tartrate 25 mg Tablet PO (08:32)
[2022-09-15] MEDS: aspirin 81 mg Chew Tablet PO (08:32)
--- NOTE | 2022-09-15 12:03 | PC.CHAP ---
Pastoral Care Encounter/Spiritual Assessment Type of Contact [] Declined sales clerk visit [] Patient/Family/Request visit [] Outpatient visit [] Follow-up visit [] Physician referral [] Code/Alert [x] Routine visit [] Staff referral [] Actively dying [] Patient sleeping [] Family support [] [] Out of room [] Palliative care [] [] Receiving care in room [] Pre-surgical visit [] Trauma [] Long length of stay [x] ICU visit [] Other: Relational/Emotional Strength [] Patient feels connected with others/family/visitors/staff [] Distress [] Loneliness/isolation [] Abandonment Spirituality of Patient [] Person of Litzy [] Attends Sikhism of their Litzy [] Believes in Prayer [] Reads Bible or Oriental Orthodox materials [] There are Spiritual issues to be addressed Collar Pointer Interventions [x] Prayer [] Active listening [] Non-anxious presence [] Spiritual/emotional support [] Crisis/trauma care [] Spiritual counseling [] Bereavement support [] Provided bereavement packet [] Provided Bible/devotional materials [] Provided toy/stuffed animal, coloring book to patient or family member [] Provided Communion [] Anointing/[place] [] Salvation [] Completed spiritual assessment [] Other: Impact on Illness or Injury [] Angry [] Fearful [] Anxious [] Often cries [] Exhaustion [] Unable to work [] Unable to attend congregational [] Unable to walk/stand [] Unable to read [] Unable to drive [] Unable to eat/drink [] Unable to sleep [] Unable to be with family [] Patient intubated [] Other: Summary patient setting up Time spent with patient
--- NOTE | 2022-09-15 12:59 | P.TS_ITS ---
Transfer Summary Providers Date of Admission: 09/13/22 08:47 Date of Discharge/Transfer: 09/15/22 Attending Provider at Admission: Dane Calderón MD Attending Provider at Transfer: Dane Calderón MD Primary Care Provider: Melissa Baker MD Transfer Plans: Anticipated date of transfer: 09/15/22 . Diagnoses at Discharge Discharge Diagnosis (1) UTI (urinary tract infection): Status: Acute (2) Elevated brain natriuretic peptide (BNP) level: Status: Acute (3) Elevated blood pressure reading: Status: Acute (4) 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: Status: Acute (5) Tobacco abuse: Status: Acute Reason for Visit Reason for Visit Chest Pain TS Data Studies Completed and Pending Pending at discharge Category Date Time Status Osmolality Serum Routine Lab 09/14/22 16:20 Received Osmolality Urine Routine Lab 09/14/22 15:47 Received Urine Sodium [Urine Random Sodium] Stat Lab 09/15/22 08:14 Ordered Labs from last 24 hours 09/15/22 09/15/22 09/14/22 02:32 02:32 16:20 WBC 12.7 H RBC 4.01 L Hgb 13.5 Hct 41.2 MCV 102.7 H MCH 33.7 MCHC 32.8 RDW 12.4 Plt Count 221 MPV 12.3 H Neut % (Auto) 70.3 Lymph % (Auto) 18.8 [place] % (Auto) 7.8 Eos % (Auto) 2.4 Baso % (Auto) 0.2 Neut # (Auto) 8.96 H Lymph # (Auto) 2.4 [place] # (Auto) 1.0 H Eos # (Auto) 0.3 Baso # (Auto) 0.0 Nucleated RBC % (auto) 0 Nucleated RBCs # 0.0 APTT Sodium 133 L Potassium 3.9 Chloride 102 Carbon Dioxide 25 Anion Gap 9.9 BUN 14 Creatinine 0.8 GFR Calculation Not Reportable Glucose 89 Serum Osmolality Pending Calculated Osmolality 276 L Calcium 8.5 Urine Osmolality 09/14/22 09/14/22 16:20 15:47 WBC RBC Hgb Hct MCV MCH MCHC RDW Plt Count MPV Neut % (Auto) Lymph % (Auto) [place] % (Auto) Eos % (Auto) Baso % (Auto) Neut # (Auto) Lymph # (Auto) [place] # (Auto) Eos # (Auto) Baso # (Auto) Nucleated RBC % (auto) Nucleated RBCs # APTT 28.6 Sodium Potassium Chloride Carbon Dioxide Anion Gap BUN Creatinine GFR Calculation Glucose Serum Osmolality Calculated Osmolality Calcium Urine Osmolality Pending Completed Studies During Hospitalization Category Date Time Status DIRECTOR OF 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 echo complete* [id number] Routine Ultrasound 09/13/22 09:27 Completed Laboratory Last Values WBC 12.7 10^3/uL (4.0-10.0) H 09/15/22 02:32 RBC 4.01 10^6/uL (4.1-5.3) L 09/15/22 02:32 Hgb 13.5 g/dL (11.5-15.3) 09/15/22 02:32 Hct 41.2 % (37.0-47.0) 09/15/22 02:32 MCV 102.7 fl (81-99) H 09/15/22 02:32 MCH 33.7 pg (28.0-34.0) 09/15/22 02:32 MCHC 32.8 g/dL (30.0-36.0) 09/15/22 02:32 RDW 12.4 % (12.1-15.1) 09/15/22 02:32 Plt Count 221 10^3/cmm (130-400) 09/15/22 02:32 MPV 12.3 fL (7.4-10.4) H 09/15/22 02:32 Neut % (Auto) 70.3 % 09/15/22 02:32 Lymph % (Auto) 18.8 % 09/15/22 02:32 [place] % (Auto) 7.8 % 09/15/22 02:32 Eos % (Auto) 2.4 % 09/15/22 02:32 Baso % (Auto) 0.2 % 09/15/22 02:32 Neut # (Auto) 8.96 10^3/uL (1.8-7.7) H 09/15/22 02:32 Lymph # (Auto) 2.4 10^3/uL (0.8-4.8) 09/15/22 02:32 [place] # (Auto) 1.0 10^3/uL (0.2-0.9) H 09/15/22 02:32 Eos # (Auto) 0.3 10^3/uL (0.0-0.8) 09/15/22 02:32 Baso # (Auto) 0.0 10^3/uL (0.0-0.1) 09/15/22 02:32 Nucleated RBC % (auto) 0 % 09/15/22 02:32 Nucleated RBCs # 0.0 /100WBC 09/15/22 02:32 APTT 28.6 SECONDS (23.9-36.7) 09/14/22 16:20 Sodium 133 mmol/L (136-145) L 09/15/22 02:32 Potassium 3.9 mmol/L (3.5-5.1) 09/15/22 02:32 Chloride 102 mmol/L (98-107) 09/15/22 02:32 Carbon Dioxide 25 mmol/L (22-29) 09/15/22 02:32 Anion Gap 9.9 (5-19) 09/15/22 02:32 BUN 14 mg/dL (8-23) 09/15/22 02:32 Creatinine 0.8 mg/dL (0.5-0.9) 09/15/22 02:32 GFR Calculation Not Reportable 09/15/22 02:32 Glucose 89 mg/dL (65-115) 09/15/22 02:32 Calculated Osmolality 276 mOsm/kg (285-295) L 09/15/22 02:32 Calcium 8.5 mg/dL (8.5-10.5) 09/15/22 02:32 Troponin T Gen 5 ng/L 31 ng/L (0-10) H 09/13/22 17:33 C-Reactive Protein 30.3 mg/L (0.0-4.9) H 09/14/22 03:00 Triglycerides 117 mg/dL (0-150) 09/13/22 09:55 Cholesterol 168 mg/dL (0-200) 09/13/22 09:55 LDL Cholesterol, Calc 104 mg/dL (50-129) 09/13/22 09:55 HDL Cholesterol 41 mg/dL (60-100) L 09/13/22 09:55 LDL/HDL Ratio 2.54 RATIO (0.00-3.22) 09/13/22 09:55 Cholesterol/HDL Ratio 4.10 mg/dL (0.0-4.40) 09/13/22 09:55 Procalcitonin 0.02 ng/mL (0-0.5) 09/14/22 03:00 TSH 5.34 uIU/mL (0.27-4.20) H 09/13/22 09:55 Free T4 1.09 ng/dL (0.82-1.77) 09/13/22 17:33 Urine Color Yellow (Yellow) 09/13/22 09:58 Urine Appearance Clear (CLEAR) 09/13/22 09:58 Urine pH 5 (5-7) 09/13/22 09:58 Ur Specific [place] 1.020 (1.005-1.030) 09/13/22 09:58 Urine Protein Neg (Negative) 09/13/22 09:58 Urine Glucose (UA) Norm (Normal) 09/13/22 09:58 Urine Ketones Negative (Negative) 09/13/22 09:58 Urine Blood Neg (Negative) 09/13/22 09:58 Urine Nitrate Positive (Negative) H 09/13/22 09:58 Urine Bilirubin Neg (Negative) 09/13/22 09:58 Urine Urobilinogen Norm mg/dL (Negative) 09/13/22 09:58 Ur Leukocyte Esterase 1+ (Negative) H 09/13/22 09:58 Urine RBC 0-4 /hpf (0-2) H 09/13/22 09:58 Urine WBC 10-15 /hpf (0-5) H 09/13/22 09:58 Ur Squamous Epith Cells 0-4 /hpf (0-5) H 09/13/22 09:58 Ur Transition Epith Cell None /hpf 09/13/22 09:58 Amorphous Sediment Not Reportable 09/13/22 09:58 Urine Bacteria M /hpf (NONE) 09/13/22 09:58 Recent Clincial Data Last Vital Signs Temp 97.8 F 09/15/22 12:00 Pulse 60 09/15/22 12:00 Resp 23 H 09/15/22 07:00 BP 142/61 09/15/22 12:00 Pulse Ox 94 09/15/22 12:00 O2 Del Method 09/15/22 12:00 O2 Flow Rate 1 09/15/22 04:00 Vital Signs Temp Pulse Resp BP Pulse Ox Pulse Ox Pulse Ox 09/15/22 12:00 97.8 F 60 142/61 94 09/15/22 11:00 97.8 F 57 L 123/57 95 09/15/22 10:00 59 L 124/56 94 09/15/22 09:00 66 140/55 93 09/15/22 09:57 58 L 95 09/15/22 09:57 93 95 09/15/22 08:00 142/54 09/15/22 07:00 98.5 F 70 23 H 100/34 95 09/15/22 06:00 64 20 H 129/48 98 09/15/22 05:00 65 15 149/51 98 09/15/22 05:46 52 L 09/15/22 04:00 98.0 F 67 18 118/41 99 09/15/22 03:00 56 L 20 H 154/49 97 09/15/22 02:00 64 24 H 138/62 98 09/15/22 01:00 69 15 110/40 O2 Del Method O2 Del Method O2 Flow Rate 09/15/22 12:00 Room Air 09/15/22 11:00 09/15/22 10:00 09/15/22 09:00 09/15/22 09:57 Room Air 09/15/22 09:57 09/15/22 08:00 09/15/22 07:00 Room Air 09/15/22 06:00 09/15/22 05:00 09/15/22 05:46 09/15/22 04:00 Nasal Cannula 1 09/15/22 03:00 09/15/22 02:00 09/15/22 01:00 Intake & Output/Weight 09/13/22 09/14/22 09/15/22 09/16/22 06:59 06:59 06:59 06:59 Intake Total 1577.75 / 1577.75 1856.667 / 1856.667 50 / 50 Output Total 350 / 350 325 / 325 250 / 250 Balance 1227.75 / 1227.75 1531.667 / 1531.667 -200 / -200 Weight 164 lb 3.91 oz 164 lb 3.91 oz Vitals Last Vital Signs Temp 97.8 F 09/15/22 12:00 Pulse 60 09/15/22 12:00 Resp 23 H 09/15/22 07:00 BP 142/61 09/15/22 12:00 Pulse Ox 94 09/15/22 12:00 O2 Del Method 09/15/22 12:00 O2 Flow Rate 1 09/15/22 04:00 TS Medications Medications Acetaminophen (Acetaminophen 325 Mg Tablet) 650 mg PO Q6H PRN PRN Reason: MILD PAIN Last Admin: 09/14/22 09:59 Dose: 650 mg Al Hydrox/Mg Hydrox/Simethicone (Zoyd-Dqw-Khxtlqsjj-El 30 Ml Udc) 30 ml PO Q15M PRN PRN Reason: INDIGESTION Alprazolam (Alprazolam 0.5 Mg Tablet) 0.25 mg PO TID PRN PRN Reason: ANXIETY Aspirin (Aspirin 81 Mg Chew Tablet) 81 mg PO DAILY [facility] Last Admin: 09/15/22 08:32 Dose: 81 mg Atropine Sulfate (Atropine 1 Mg/Ml Sdv 1 Ml) 0.5 mg IVP PRN PRN PRN Reason: Symptomatic bradycardia Clopidogrel Bisulfate (Clopidogrel 75 Mg Tablet) 75 mg PO DAILY [facility] Last Admin: 09/15/22 08:32 Dose: 75 mg Fentanyl (Fentanyl 50 Mcg/Ml Inj 2ml) 50 mcg IVP PRN PRN PRN Reason: sheath pull Last Admin: 09/14/22 10:54 Dose: 50 mcg Ceftriaxone Sodium 1,000 mg/ (Sodium Chloride) 50 mls @ 100 mls/hr IV Q24H [facility]; Protocol Last Infusion: 09/15/22 07:18 Dose: Infused Sodium Chloride (Sodium Chloride 0.9%) 1,000 mls @ 100 mls/hr IV .Q10H [facility] Last Admin: 09/14/22 23:13 Dose: 100 mls/hr Magnesium Hydroxide (Magnesium Hydroxide 30 Ml Udc) 30 ml PO DAILY PRN PRN Reason: CONSTIPATION Metoprolol Tartrate (Metoprolol Tartrate 25 Mg Tablet) 25 mg PO BID@0900,2100 [facility] Last Admin: 09/15/22 08:32 Dose: 25 mg Naloxone HCl (Naloxone 0.4 Mg/Ml Sdv) 0.1 mg IVP Q2M PRN PRN Reason: RESPIRATORY RATE < 8/MIN Nitroglycerin (Nitroglycerin 0.4 Mg Sublingual Tablet) 0.4 mg SUBLINGUAL Q5M PRN PRN Reason: CHEST PAIN Ondansetron HCl (Ondansetron 2 Mg/Ml Sdv 2 Ml) 4 mg IVP Q6H PRN PRN Reason: NAUSEA AND VOMITING Last Admin: 09/14/22 09:20 Dose: 4 mg Temazepam (Temazepam 15 Mg Capsule) 15 mg PO BEDTIME PRN PRN Reason: INSOMNIA Last Admin: 09/14/22 23:10 Dose: 15 mg Discontinued Medications Aspirin (Aspirin 81 Mg Ec Tablet) 162 mg PO DAILY [facility] Last Admin: 09/13/22 10:08 Dose: 162 mg Atorvastatin Calcium (Atorvastatin 40 Mg Tablet) 40 mg PO NOW ONE Stop: 09/13/22 10:01 Last Admin: 09/13/22 10:12 Dose: Not Given Clopidogrel Bisulfate (Clopidogrel 300 Mg Tablet) Confirm Administered Dose 600 mg .ROUTE .STK-MED ONE Stop: 09/14/22 08:01 Enoxaparin Sodium (Enoxaparin 80 Mg/0.8 Ml Syringe) 75 mg SUBCUT Q12H [facility] Last Admin: 09/14/22 05:03 Dose: Not Given Fentanyl (Fentanyl 50 Mcg/Ml Inj 2ml) Confirm Administered Dose 100 mcg .ROUTE .STK-MED ONE Stop: 09/14/22 06:45 Heparin Sodium (Porcine) (Heparin 5,000 Unit/Ml Inj 1 Ml) Confirm Administered Dose 5,000 unit .ROUTE .STK-MED ONE Stop: 09/14/22 06:44 Heparin Sodium (Porcine) (Heparin 5,000 Unit/Ml Inj 1 Ml) Confirm Administered Dose 5,000 unit .ROUTE .STK-MED ONE Stop: 09/14/22 06:47 Heparin Sodium (Porcine) (Heparin 5,000 Unit/Ml Inj 1 Ml) Confirm Administered Dose 5,000 unit .ROUTE .STK-MED ONE Stop: 09/14/22 07:56 Potassium Chloride/Dextrose/Sod Cl (D5-Ns 0.45% + Kcl 20 Meq) 20 meq in 1,000 mls @ 75 mls/hr IV .[id number] [facility] Last Infusion: 09/14/22 07:00 Dose: Infused Nitroglycerin/Dextrose (Nitroglycerin Drip) 50 mg in 250 mls @ 0 mls/hr IV .Q0M [facility]; Protocol Last Titration: 09/14/22 00:00 Dose: 0 mcg/min, 0 mls/hr Lidocaine HCl (Xylocaine) Confirm Administered Dose 10 mls @ as directed .ROUTE .STK-MED ONE Stop: 09/14/22 06:51 Sodium Chloride (Sodium Chloride 0.9%) Confirm Administered Dose 1,000 mls @ as directed .ROUTE .STK-MED ONE Stop: 09/14/22 06:58 Lidocaine HCl (Xylocaine) Confirm Administered Dose 10 mls @ as directed .ROUTE .STK-MED ONE Stop: 09/14/22 07:17 Metoprolol Tartrate (Metoprolol Tartrate 25 Mg Tablet) 12.5 mg PO BID [place]YL[place] Metoprolol Tartrate (Metoprolol Tartrate 25 Mg Tablet) 25 mg PO ONCE ONE Stop: 09/13/22 13:20 Last Admin: 09/13/22 13:41 Dose: 25 mg Midazolam HCl (Midazolam 1 Mg/Ml Inj 2 Ml) Confirm Administered Dose 2 mg .ROUTE .STK-MED ONE Stop: 09/14/22 06:45 Allergies naproxen Allergy (Verified 09/13/22 13:18) ALGY-Rash Home Medications miscellaneous medical supply See Rx Instructions miscellaneous .COMPLEX #1 ea 03/16/22 [Rx Confirmed 09/13/22] Vitamin D3 Liquid See Rx Instructions .Route .COMPLEX 09/13/22 [History Confirmed 09/13/22] ascorbic acid-ascorbate calcium-ascorbate sod 500 mg/15 mL oral liquid (Vitamin C) See Rx Instructions .Route .COMPLEX 09/13/22 [History Confirmed 09/13/22] aspirin 325 mg tablet 325 mg PO Q4H PRN Headache 09/13/22 [History Confirmed 09/13/22] cyanocobalamin (vitamin B-12) 1,000 mcg/mL oral drops (Vitamin B-12) See Rx Instructions .Route .COMPLEX 09/13/22 [History Confirmed 09/13/22] Discharge Plan Discharge Patient Disposition: Home Condition: Stable Prescriptions: New aspirin 81 mg Tablet,Chewable 81 mg PO DAILY Qty: 30 0RF cefpodoxime 200 mg tablet 200 mg PO BID 5 Days Qty: 10 0RF Rx Instructions: must administer with a meal/food atorvastatin [Lipitor] 40 mg tablet 40 mg PO DAILY 30 Days Qty: 90 0RF clopidogrel 75 mg Tablet 75 mg PO DAILY Qty: 30 0RF Continued miscellaneous medical supply Misc See Rx Instructions miscellaneous .COMPLEX Qty: 1 0RF Rx Instructions: cane miscellaneous; Vitamin C 500 mg/15 mL Liquid See Rx Instructions .ROUTE .COMPLEX Rx Instructions: 10 drops po daily as needed Vitamin B-12 1,000 mcg/mL Drops See Rx Instructions .ROUTE .COMPLEX Rx Instructions: 10 drops po daily as needed Vitamin D3 Liquid See Rx Instructions .ROUTE .COMPLEX Rx Instructions: 10 drops po daily as needed Discontinued aspirin 325 mg Tablet 325 mg PO Q4H PRN (Reason: Headache) Rx Instructions: while awake Discharge Orders: Discharge Order (Routine); Ordered 09/15/22 Ordered By: Dane Calderón Discharge Diet: Advance as tolerated Discharge Activity: Resume usual activity Patient Instructions: Opioid Safety Activity Restrictions/Additional Instructions: Avoid any weight lifting or climbing stairs for the next 2 days. A repeat urinalysis after 2 weeks with the primary care provider In the event of future developing any abdominal pain, fever or chills, may contact the primary care provider. 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
--- NOTE | 2022-09-15 13:00 | PM.DCS ---
Discharge Providers Date of Admission: 09/13/22 08:47 Date of Discharge: September 15, 2022 Attending Provider at Admission: Dane Calderón MD Attending Provider at Discharge: Dane Calderón MD Consults: Dr. Maddox/hospitalist service Primary Care Provider: Melissa Baker MD Diagnoses at Discharge Discharge Diagnosis (1) NSTEMI (non-ST elevated myocardial infarction): Details from hospital stay: Patient was found to have elevated troponin T at the time of the hospital admission. Her clinical features are consistent with unstable angina complicated with non-ST relation myocardial infarction. She was treated with subcu Lovenox, beta-wen, aspirin, Plavix and statin Status: Acute (2) Arteriosclerotic heart disease (ASHD): Details from hospital stay: The cardiac catheterization revealed high-grade stenosis in the proximal LAD. Patient went to PCI of this lesion. She had a mild diffuse disease in the other vessels. Further details of the cardiac catheterization data, please refer to the report from 09/14/2022. Status: Acute (3) Benign essential HTN: Details from hospital stay: Patient was found to have elevated blood pressure during the hospital stay. She had a features of essential benign hypertension. Status: Acute (4) UTI (urinary tract infection): Details from hospital stay: The urinalysis revealed positive nitrates with elevated white cell count. She also had leukocytosis. She was given IV Rocephin daily while being in the hospital. The hospitalist service was consulted to manage her UTI. Please refer to the consult report for details. Status: Acute (5) Tobacco abuse: Details from hospital stay: Patient is strongly advised to quit smoking. Status: Acute Reason for Visit Reason for Visit: Chest Pain Brief History: This patient initially was seen in the [facility] emergency room with complaints of chest pain. Her symptoms are consistent with unstable angina. She was transferred to our facility for further evaluation management. Her EKG showed some nonspecific ST changes. Initial troponin at the outside facility was within normal limits. Hospital Course Hospital Course Patient was admitted to the ICU with unstable anginal symptoms. She was treated with IV nitro, subcu Lovenox, beta-wen, aspirin and Plavix. Was found to have elevated troponin T in our hospital. She underwent a cardiac catheterization yesterday which revealed a high-grade lesion in the proximal LAD. She underwent a PCI of the proximal LAD lesion by Dr. Tucker. She also was found to UTI. The hospital service was consulted for the management of the UTI. She was treated with IV Rocephin in the hospital. Since the heart failure seems to be compensated likely, patient may not require any specific intervention at this time. Advised to continue on the current medications. This was switched to p.o. today. Her white cell count was staying elevated around 12,000. She was remaining afebrile throughout the hospital course. Since the patient is remaining stable with no new symptoms, she is being discharged home today. Physical Exam Narrative: GENERAL: The patient is alert and oriented times three. Not in any acute distress. HEENT: No significant pallor, icterus or lymphadenopathy.Oral cavity: There are no mucous membrane lesions. Fundus is not visualized NECK: Trachea appears to be central. No masses noted. No JVD or thyromegaly appreciated. RESPIRATORY: Chest is symmetrical. No intercostals muscle retraction or any accessory muscle activation. There is no chest wall tenderness. Breath sounds are heard bilaterally. No rales or rhonchi heard. No evidence of any consolidation. BREASTS: Deferred. HEART: The heart sounds are normal. No S3 or S4. No significant murmurs. No pericardial rub ABDOMEN: No vessel pulsations or distention. No tenderness. No organomegaly appreciated. Bowel sounds are normally heard. : Deferred. RECTAL: Deferred. LYMPHATIC: No lymphadenopathy noted in the neck. EXTREMITIES: Patient has no hematoma bleeding from the right groin. MUSCULOSKELETAL: No acute joint deformities or swelling SKIN: Left forearm has an area of ecchymosis, developed when the EMT tried to insert an IV. NEUROPSYCHIATRIC: The patient is alert and oriented x3. Appears to be in a good mood. No tremors or rigidity noted. 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 echo complete* [id number] Routine Ultrasound 09/13/22 09:27 Completed Pending at discharge Category Date Time Status Osmolality Serum Routine Lab 09/14/22 16:20 Received Osmolality Urine Routine Lab 09/14/22 15:47 Received Urine Sodium [Urine Random Sodium] Stat Lab 09/15/22 08:14 Ordered Laboratory Results WBC 12.7 10^3/uL (4.0-10.0) H 09/15/22 02:32 RBC 4.01 10^6/uL (4.1-5.3) L 09/15/22 02:32 Hgb 13.5 g/dL (11.5-15.3) 09/15/22 02:32 Hct 41.2 % (37.0-47.0) 09/15/22 02:32 MCV 102.7 fl (81-99) H 09/15/22 02:32 MCH 33.7 pg (28.0-34.0) 09/15/22 02:32 MCHC 32.8 g/dL (30.0-36.0) 09/15/22 02:32 RDW 12.4 % (12.1-15.1) 09/15/22 02:32 Plt Count 221 10^3/cmm (130-400) 09/15/22 02:32 MPV 12.3 fL (7.4-10.4) H 09/15/22 02:32 Neut % (Auto) 70.3 % 09/15/22 02:32 Lymph % (Auto) 18.8 % 09/15/22 02:32 [place] % (Auto) 7.8 % 09/15/22 02:32 Eos % (Auto) 2.4 % 09/15/22 02:32 Baso % (Auto) 0.2 % 09/15/22 02:32 Neut # (Auto) 8.96 10^3/uL (1.8-7.7) H 09/15/22 02:32 Lymph # (Auto) 2.4 10^3/uL (0.8-4.8) 09/15/22 02:32 [place] # (Auto) 1.0 10^3/uL (0.2-0.9) H 09/15/22 02:32 Eos # (Auto) 0.3 10^3/uL (0.0-0.8) 09/15/22 02:32 Baso # (Auto) 0.0 10^3/uL (0.0-0.1) 09/15/22 02:32 Nucleated RBC % (auto) 0 % 09/15/22 02:32 Nucleated RBCs # 0.0 /100WBC 09/15/22 02:32 APTT 28.6 SECONDS (23.9-36.7) 09/14/22 16:20 Sodium 133 mmol/L (136-145) L 09/15/22 02:32 Potassium 3.9 mmol/L (3.5-5.1) 09/15/22 02:32 Chloride 102 mmol/L (98-107) 09/15/22 02:32 Carbon Dioxide 25 mmol/L (22-29) 09/15/22 02:32 Anion Gap 9.9 (5-19) 09/15/22 02:32 BUN 14 mg/dL (8-23) 09/15/22 02:32 Creatinine 0.8 mg/dL (0.5-0.9) 09/15/22 02:32 GFR Calculation Not Reportable 09/15/22 02:32 Glucose 89 mg/dL (65-115) 09/15/22 02:32 Calculated Osmolality 276 mOsm/kg (285-295) L 09/15/22 02:32 Calcium 8.5 mg/dL (8.5-10.5) 09/15/22 02:32 Troponin T Gen 5 ng/L 31 ng/L (0-10) H 09/13/22 17:33 C-Reactive Protein 30.3 mg/L (0.0-4.9) H 09/14/22 03:00 Triglycerides 117 mg/dL (0-150) 09/13/22 09:55 Cholesterol 168 mg/dL (0-200) 09/13/22 09:55 LDL Cholesterol, Calc 104 mg/dL (50-129) 09/13/22 09:55 HDL Cholesterol 41 mg/dL (60-100) L 09/13/22 09:55 LDL/HDL Ratio 2.54 RATIO (0.00-3.22) 09/13/22 09:55 Cholesterol/HDL Ratio 4.10 mg/dL (0.0-4.40) 09/13/22 09:55 Procalcitonin 0.02 ng/mL (0-0.5) 09/14/22 03:00 TSH 5.34 uIU/mL (0.27-4.20) H 09/13/22 09:55 Free T4 1.09 ng/dL (0.82-1.77) 09/13/22 17:33 Urine Color Yellow (Yellow) 09/13/22 09:58 Urine Appearance Clear (CLEAR) 09/13/22 09:58 Urine pH 5 (5-7) 09/13/22 09:58 Ur Specific [place] 1.020 (1.005-1.030) 09/13/22 09:58 Urine Protein Neg (Negative) 09/13/22 09:58 Urine Glucose (UA) Norm (Normal) 09/13/22 09:58 Urine Ketones Negative (Negative) 09/13/22 09:58 Urine Blood Neg (Negative) 09/13/22 09:58 Urine Nitrate Positive (Negative) H 09/13/22 09:58 Urine Bilirubin Neg (Negative) 09/13/22 09:58 Urine Urobilinogen Norm mg/dL (Negative) 09/13/22 09:58 Ur Leukocyte Esterase 1+ (Negative) H 09/13/22 09:58 Urine RBC 0-4 /hpf (0-2) H 09/13/22 09:58 Urine WBC 10-15 /hpf (0-5) H 09/13/22 09:58 Ur Squamous Epith Cells 0-4 /hpf (0-5) H 09/13/22 09:58 Ur Transition Epith Cell None /hpf 09/13/22 09:58 Amorphous Sediment Not Reportable 09/13/22 09:58 Urine Bacteria M /hpf (NONE) 09/13/22 09:58 Vitals Last Vital Signs Temp 97.8 F 09/15/22 12:00 Pulse 60 09/15/22 12:00 Resp 23 H 09/15/22 07:00 BP 142/61 09/15/22 12:00 Pulse Ox 94 09/15/22 12:00 O2 Del Method 09/15/22 12:00 O2 Flow Rate 1 09/15/22 04:00 Discharge Plan Discharge Patient Disposition: Home Condition: Stable Prescriptions: New cefpodoxime 200 mg tablet 200 mg PO BID 5 Days Qty: 10 0RF Rx Instructions: must administer with a meal/food aspirin 81 mg Tablet,Chewable 81 mg PO DAILY Qty: 30 0RF clopidogrel 75 mg Tablet 75 mg PO DAILY Qty: 30 0RF Lipitor 40 mg tablet 40 mg PO DAILY 30 Days Qty: 90 0RF nitroglycerin 0.4 mg Tablet, Sublingual 0.4 mg sublingual Q5M PRN (Reason: Chest Pain) 30 Days Qty: 30 0RF metoprolol tartrate 25 mg Tablet 25 mg PO BID@0900,2100 Qty: 30 0RF Continued miscellaneous medical supply Misc See Rx Instructions miscellaneous .COMPLEX Qty: 1 0RF Rx Instructions: cane miscellaneous; Vitamin C 500 mg/15 mL Liquid See Rx Instructions .ROUTE .COMPLEX Rx Instructions: 10 drops po daily as needed Vitamin B-12 1,000 mcg/mL Drops See Rx Instructions .ROUTE .COMPLEX Rx Instructions: 10 drops po daily as needed Vitamin D3 Liquid See Rx Instructions .ROUTE .COMPLEX Rx Instructions: 10 drops po daily as needed Discontinued aspirin 325 mg Tablet 325 mg PO Q4H PRN (Reason: Headache) Rx Instructions: while awake Discharge Orders: Discharge Order (Routine); Ordered 09/15/22 Ordered By: Dane Calderón Referrals: Irlanda Ya FNP [Nurse Practitioner] - Melissa Baker MD [Primary Care Provider] - Discharge Diet: Advance as tolerated Discharge Activity: Resume usual activity Patient Instructions: Aspirin (By mouth), Cefpodoxime Proxetil (By mouth) (Vantin), Atorvastatin (By mouth), Clopidogrel (By mouth), Coronary Angioplasty (DC), How to Stop Smoking (DC), Urinary Tract Infection in Women (DC), Chest Pain Stoplight, Opioid Safety, Post Angiogram Home Care Instructions Activity Restrictions/Additional Instructions: Avoid any weight lifting or climbing stairs for the next 2 days. A repeat urinalysis after 2 weeks with the primary care provider In the event of the patient developing any abdominal pain, fever or chills, may contact the primary care provider. Take the medications as prescribed Appointment at the [facility] to be seen by the nurse practitioner next week. Appointment with me in the office in 1 month Discharge Attestations Time Spent in Discharge Care*: greater than 30 min Time Spent in Smoking Cessation: Tachycardia was complications of smoking were discussed. Patient is strongly advised to quit smoking. Quality Metrics Clinical Quality Measures [ No reported AMI, CVA or VTE this stay] Coding Level of Care Code Acute Chg FW DC note History Expanded Problem Focused Exam Detailed Medical Decision Making Moderate Complexity Diagnoses NSTEMI (non-ST elevated myocardial infarction) I21.4 Arteriosclerotic heart disease (ASHD) I25.10 Benign essential HTN I10 UTI (urinary tract infection) N39.0 Tobacco abuse Z72.0
--- NOTE | 2022-09-15 13:46 | PC.NURSE ---
NUrse is discharging patient. Iv removed and intact. Followup appointment, medication, and activity education provided. Information provided to patient for taxi service to make future appointments.
[2022-09-15 15:48] LABS: Osmolality Serum 283 mOsm/kg (278-305)
[2022-09-20 09:43] LABS: Osmolality Urine 427 mOsm/kg (50-1200)
== END 2022-09-15 14:24 | disposition home or self-care (01) | DRG 247 ==
PROVIDERS: Internal Medicine; Internal Medicine Cardiovascular Disease; Admitting Provider Internal Medicine Cardiovascular Disease; PCP Family Medicine; Visit Provider Internal Medicine Cardiovascular Disease
PROC: 027034Z Dilation of Coronary Artery, One Artery with Drug-eluting Intraluminal Device, Percutaneous Approach (ICD-10-PCS; principal; 2022-09-14 07:00)
DX: I21.4 Non-ST elevation (NSTEMI) myocardial infarction (principal); N39.0 Urinary tract infection, site not specified; E87.1 Hypo-osmolality and hyponatremia; I25.110 Atherosclerotic heart disease of native coronary artery with unstable angina pectoris; F17.210 Nicotine dependence, cigarettes, uncomplicated; Z87.440 Personal history of urinary (tract) infections; I10 Essential (primary) hypertension
CPT/HCPCS: 36415; 80048; 80061; 81001; 83930; 83935; 84145; 84439; 84443; 84484; 85025; 85730; 86140; 87086; 93005; 93306; 93458; 94760; 96360; 96372; 99152; 99153; C1769; C1874; C1887; C1894; C9600; J0696; J1644; J1650; J2250; J2405; J3010; J3490; J7030; Q9967

== ENCOUNTER 2022-09-15 19:37 | Observation (INO) | payer MEDICARE, SELFPAY ==
--- NOTE | 2022-09-15 | USR_ITS ---
PROCEDURE INFORMATION: Exam: US Duplex Right Lower Extremity Veins, Limited Exam date and time: 09/15/2022 9:36 PM Age: 86 years old Clinical indication: Leg, upper; Patient HX: Patient is 2 days post cardiac cath complaining of pain and swelling in the right groin. Initially only a rle arterial exam was placed. Later, ordering physician requested rle venous as well. All images are on the arterial exam. ; Additional info: Post cath / pain/ swelling, evaluate for dvt / pseudo / ayaan TECHNIQUE: Imaging protocol: Real-time Duplex ultrasound of the Right Lower Extremity with 2-D dee scale, color Doppler flow and spectral waveform analysis with image documentation. Limited exam was focused on the right lower extremity veins. COMPARISON: [place] [id number] 09/15/2022 8:15 PM FINDINGS: Right deep veins: Unremarkable. The common femoral, femoral, proximal profunda femoral and popliteal veins are patent without thrombus. Normal Doppler waveforms. Normal compressibility and/or augmentation response. Right superficial veins: Unremarkable. Saphenofemoral junction is patent without thrombus. Soft tissues: Unremarkable. US/[place] [id number] IMPRESSION: No evidence of deep vein thrombosis.
[2022-09-15 19:41] VITALS: BP 106/48; PULSE 88; RESP 16; TEMP 36.5; O2SAT 91; BMI 25.8
--- NOTE | 2022-09-15 19:43 | ED_ITS ---
Documented by User: Star Serra MD 09/20/22 18:07 HPI - General Adult General: Chief complaint: Extremity Injury, Lower Stated complaint: STENT COMPLICATIONS Time Seen by Provider: 09/15/22 19:42 History of Present Illness: Ms. Ivory is an 86-year-old lady with significant recent history of cardiac cath presenting to the emergency department due to postoperative concern. She reports being discharged today and feeling relatively well upon discharge. She had sudden onset of painful groin swelling which caused syncope earlier. Was noted to be hypotensive by EMS however upon arrival blood pressure adequate. Intensity symptoms is moderate to severe in the right groin region. No other specific changes in health, exacerbating, or alleviating factors identified. 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 UTI (urinary tract infection) Family History Other No significant family history Social History Smoking and tobacco status: current every day smoker cigarettes Years cigarettes smoked: 60 Alcohol intake: never Physical Exam Const: COMMON NORMALS: patient oriented x3 and alert GENERAL APPEARANCE: cooperative and well developed HENMT: COMMON NORMALS: normocephalic and atraumatic HEAD & SCALP: normocephalic and atraumatic THROAT: posterior oropharynx normal Eye: COMMON NORMALS: conjunctivae normal CONJUNCTIVA: Yes conjunctivae normal SCLERA: sclerae normal Neck/C-Spine: COMMON NORMALS: supple GENERAL: Yes trachea midline Resp: COMMON NORMALS: clear to auscultation bilaterally EFFORT & INSPECTION : Yes able to speak in complete sentences AUSCULTATION: clear to auscultation bilaterally Cardio: COMMON NORMALS: regular rate and regular rhythm RATE: regular rate RHYTHM: regular rhythm GI: COMMON NORMALS: Soft to palpation PALPATION: Yes Soft to palpation and No Tenderness to palpation present (GI) Extremity: NARRATIVE EXTREMITY EXAM: Localized area of ecchymosis and swelling primarily medial right groin. Distal seems intact. GENERAL: Yes normal exam except as noted and No edema Neuro: COMMON NORMALS: patient oriented x3, CN's II-XII intact bilaterally, moves all extremities, no focal motor deficits and no sensory deficits noted SENSORIUM/ORIENTATION: Yes alert and No Orientation impaired Psych: COMMON NORMALS: mental status grossly normal and Normal thought process present THOUGHT PROCESS: Normal thought process present Course Vital Signs: Vital signs: Vital Signs Temperature 98.3 F 09/18/22 15:58 Pulse Rate 94 09/18/22 15:58 Respiratory Rate 16 09/18/22 15:58 Blood Pressure 111/59 09/18/22 15:58 Pulse Oximetry 95 09/18/22 15:58 Oxygen Delivery Me thod 09/18/22 12:00 MDM - General Adult Medical Decision Making 86-year-old lady presenting with sudden onset of pain ampicillin after cardiac cath. Pain at groin access site, no evidence of external hemorrhage. No focal neurologic deficits appreciated on exam and patient is currently vitally satisfactory though reportedly hypotensive for EMS. Handed off to Dr. Bragg pending completion of ED evaluation. Patient presents with a large hematoma likely from her cardiac cath CTA shows no signs of active bleeding will admit for observation at this time. Medical Records I reviewed the patient's medical records. Lab Data I reviewed the patient's lab results. : 09/18/22 08:58 09/17/22 03:25 Radiology Impressions Venous Duplex 09/15/22 00:00 IMPRESSION: No evidence of deep vein thrombosis. Duplex Scan Lower Extremity Artery 09/15/22 19:54 IMPRESSION: 1. Hematoma in the right groin region measuring 6.0 x 1.8 x 4.6 cm. 2. No pseudoaneurysm, AV fistula formation, or significant arterial stenosis or occlusion. Abdomen/Pelvis CT 09/15/22 23:04 IMPRESSION: 1. 9.4 x 8.5 x 2.9 cm hematoma in subcutaneous fat over the anteromedial groin and proximal thigh. 2. Contiguous 20.8 x 10.9 x 2.6 cm hematoma over the anterolateral thigh. 3. Possible leak from the anteromedial aspect of the proximal superficial femoral artery into the subcutaneous fat soft tissues with extension anteriorly to the area of the large subcutaneous fat hematomas. CTA right lower extremity may be helpful to document exact site of leak. ADDENDUM: 09/16/22 0023 THIS REPORT CONTAINS FINDINGS THAT MAY BE CRITICAL TO PATIENT CARE. The findings were verbally communicated via telephone conference with ESPERANZA BRAGG at 12:21 AM CDT on 09/16/2022. The findings were acknowledged and understood. Lower Extremity CTA 09/16/22 00:13 IMPRESSION: 1. No active bleeding in the thigh. 2. No focal right lower extremity arterial injury identified in the groin. 3. Redemonstration of proximal right thigh and groin soft tissue hematomas. Laboratory Results WBC 23.8 10^3/uL (4.0-10.0) H 09/15/22 20:08 RBC 3.35 10^6/uL (4.1-5.3) L 09/15/22 20:08 Hgb 11.4 g/dL (11.5-15.3) L 09/15/22 20:08 Hct 35.7 % (37.0-47.0) L 09/15/22 20:08 MCV 106.6 fl (81-99) H 09/15/22 20:08 MCH 34.0 pg (28.0-34.0) 09/15/22 20:08 MCHC 31.9 g/dL (30.0-36.0) 09/15/22 20:08 RDW 12.4 % (12.1-15.1) 09/15/22 20:08 Plt Count 243 10^3/cmm (130-400) 09/15/22 20:08 MPV 12.7 fL (7.4-10.4) H 09/15/22 20:08 Neut % (Auto) 82.5 % 09/15/22 20:08 Lymph % (Auto) 8.7 % 09/15/22 20:08 [place] % (Auto) 7.2 % 09/15/22 20:08 Eos % (Auto) 0.6 % 09/15/22 20:08 Baso % (Auto) 0.3 % 09/15/22 20:08 Neut # (Auto) 19.59 10^3/uL (1.8-7.7) H 09/15/22 20:08 Lymph # (Auto) 2.1 10^3/uL (0.8-4.8) 09/15/22 20:08 [place] # (Auto) 1.7 10^3/uL (0.2-0.9) H 09/15/22 20:08 Eos # (Auto) 0.2 10^3/uL (0.0-0.8) 09/15/22 20:08 Baso # (Auto) 0.1 10^3/uL (0.0-0.1) 09/15/22 20:08 Nucleated RBC % (auto) 0 % 09/15/22 20:08 Nucleated RBCs # 0.0 /100WBC 09/15/22 20:08 PT 14.90 SECONDS (12.1-14.9) 09/15/22 20:08 INR 1.14 (0.8-1.2) 09/15/22 20:08 APTT 25.9 SECONDS (23.9-36.7) 09/15/22 20:08 Sodium 136 mmol/L (136-145) 09/15/22 20:08 Potassium 4.1 mmol/L (3.5-5.1) 09/15/22 20:08 Chloride 105 mmol/L (98-107) 09/15/22 20:08 Carbon Dioxide 20 mmol/L (22-29) L 09/15/22 20:08 Anion Gap 15.1 (5-19) 09/15/22 20:08 BUN 16 mg/dL (8-23) 09/15/22 20:08 Creatinine 0.8 mg/dL (0.5-0.9) 09/15/22 20:08 GFR Calculation Not Reportable 09/15/22 20:08 Glucose 147 mg/dL (65-115) H 09/15/22 20:08 Calculated Osmolality 286 mOsm/kg (285-295) 09/15/22 20:08 Calcium 8.1 mg/dL (8.5-10.5) L 09/15/22 20:08 Total Bilirubin 0.5 mg/dL (0.15-1.2) 09/15/22 20:08 AST 16 U/L (0-32) 09/15/22 20:08 ALT 10 U/L (0-33) 09/15/22 20:08 Alkaline Phosphatase 61 U/L (35-105) 09/15/22 20:08 Total Protein 5.3 g/dL (6.6-8.7) L 09/15/22 20:08 Albumin 2.6 g/dL (3.5-5.2) L 09/15/22 20:08 Globulin 2.7 g/dL (1.3-4.6) 09/15/22 20:08 Blood Type Cancelled 09/15/22 21:25 Rho(D) Type Cancelled 09/15/22 21:25 Antibody Screen Cancelled 09/15/22 21:25 Crossmatch See Detail 09/15/22 21:25 Discharge Plan Discharge Patient Disposition: Admitted As Inpatient Admit Provider: Jhon Zavaleta Clinical Impression: Postoperative hematoma involving circulatory system, Post-op pain Condition: Stable Discharge Diet: Usual diet Discharge Activity: Limit activity as instructed Coding Level of Care Code 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 Fwd Documented by User: Esperanza Bragg MD 09/16/22 01:02 HPI - General Adult General: Chief complaint: Extremity Injury, Lower Stated complaint: STENT COMPLICATIONS Time Seen by Provider: 09/15/22 19:42 PFSH ED PFSH: Medical History Arteriosclerotic heart disease (ASHD) Benign essential HTN Elevated blood pressure reading Elevated brain natriuretic peptide (BNP) level Fibromyalgia HTN (hypertension) Post-op pain Tobacco abuse 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 UTI (urinary tract infection) Family History Other No significant family history Social History Smoking and tobacco status: current every day smoker cigarettes Years cigarettes smoked: 60 Alcohol intake: never Course Vital Signs: Vital signs: Vital Signs Temperature 98.3 F 09/18/22 15:58 Pulse Rate 94 09/18/22 15:58 Respiratory Rate 16 09/18/22 15:58 Blood Pressure 111/59 09/18/22 15:58 Pulse Oximetry 95 09/18/22 15:58 Oxygen Delivery Me thod 09/18/22 12:00 MDM - General Adult Medical Decision Making Patient presents with a large hematoma likely from her cardiac cath CTA shows no signs of active bleeding will admit for observation at this time. Lab Data : 09/18/22 08:58 09/17/22 03:25 Radiology Impressions Venous Duplex 09/15/22 00:00 IMPRESSION: No evidence of deep vein thrombosis. Duplex Scan Lower Extremity Artery 09/15/22 19:54 IMPRESSION: 1. Hematoma in the right groin region measuring 6.0 x 1.8 x 4.6 cm. 2. No pseudoaneurysm, AV fistula formation, or significant arterial stenosis or occlusion. Abdomen/Pelvis CT 09/15/22 23:04 IMPRESSION: 1. 9.4 x 8.5 x 2.9 cm hematoma in subcutaneous fat over the anteromedial groin and proximal thigh. 2. Contiguous 20.8 x 10.9 x 2.6 cm hematoma over the anterolateral thigh. 3. Possible leak from the anteromedial aspect of the proximal superficial femoral artery into the subcutaneous fat soft tissues with extension anteriorly to the area of the large subcutaneous fat hematomas. CTA right lower extremity may be helpful to document exact site of leak. ADDENDUM: 09/16/22 0023 THIS REPORT CONTAINS FINDINGS THAT MAY BE CRITICAL TO PATIENT CARE. The findings were verbally communicated via telephone conference with ESPERANZA BRAGG at 12:21 AM CDT on 09/16/2022. The findings were acknowledged and understood. Lower Extremity CTA 09/16/22 00:13 IMPRESSION: 1. No active bleeding in the thigh. 2. No focal right lower extremity arterial injury identified in the groin. 3. Redemonstration of proximal right thigh and groin soft tissue hematomas. Laboratory Results WBC 23.8 10^3/uL (4.0-10.0) H 09/15/22 20:08 RBC 3.35 10^6/uL (4.1-5.3) L 09/15/22 20:08 Hgb 11.4 g/dL (11.5-15.3) L 09/15/22 20:08 Hct 35.7 % (37.0-47.0) L 09/15/22 20:08 MCV 106.6 fl (81-99) H 09/15/22 20:08 MCH 34.0 pg (28.0-34.0) 09/15/22 20:08 MCHC 31.9 g/dL (30.0-36.0) 09/15/22 20:08 RDW 12.4 % (12.1-15.1) 09/15/22 20:08 Plt Count 243 10^3/cmm (130-400) 09/15/22 20:08 MPV 12.7 fL (7.4-10.4) H 09/15/22 20:08 Neut % (Auto) 82.5 % 09/15/22 20:08 Lymph % (Auto) 8.7 % 09/15/22 20:08 [place] % (Auto) 7.2 % 09/15/22 20:08 Eos % (Auto) 0.6 % 09/15/22 20:08 Baso % (Auto) 0.3 % 09/15/22 20:08 Neut # (Auto) 19.59 10^3/uL (1.8-7.7) H 09/15/22 20:08 Lymph # (Auto) 2.1 10^3/uL (0.8-4.8) 09/15/22 20:08 [place] # (Auto) 1.7 10^3/uL (0.2-0.9) H 09/15/22 20:08 Eos # (Auto) 0.2 10^3/uL (0.0-0.8) 09/15/22 20:08 Baso # (Auto) 0.1 10^3/uL (0.0-0.1) 09/15/22 20:08 Nucleated RBC % (auto) 0 % 09/15/22 20:08 Nucleated RBCs # 0.0 /100WBC 09/15/22 20:08 PT 14.90 SECONDS (12.1-14.9) 09/15/22 20:08 INR 1.14 (0.8-1.2) 09/15/22 20:08 APTT 25.9 SECONDS (23.9-36.7) 09/15/22 20:08 Sodium 136 mmol/L (136-145) 09/15/22 20:08 Potassium 4.1 mmol/L (3.5-5.1) 09/15/22 20:08 Chloride 105 mmol/L (98-107) 09/15/22 20:08 Carbon Dioxide 20 mmol/L (22-29) L 09/15/22 20:08 Anion Gap 15.1 (5-19) 09/15/22 20:08 BUN 16 mg/dL (8-23) 09/15/22 20:08 Creatinine 0.8 mg/dL (0.5-0.9) 09/15/22 20:08 GFR Calculation Not Reportable 09/15/22 20:08 Glucose 147 mg/dL (65-115) H 09/15/22 20:08 Calculated Osmolality 286 mOsm/kg (285-295) 09/15/22 20:08 Calcium 8.1 mg/dL (8.5-10.5) L 09/15/22 20:08 Total Bilirubin 0.5 mg/dL (0.15-1.2) 09/15/22 20:08 AST 16 U/L (0-32) 09/15/22 20:08 ALT 10 U/L (0-33) 09/15/22 20:08 Alkaline Phosphatase 61 U/L (35-105) 09/15/22 20:08 Total Protein 5.3 g/dL (6.6-8.7) L 09/15/22 20:08 Albumin 2.6 g/dL (3.5-5.2) L 09/15/22 20:08 Globulin 2.7 g/dL (1.3-4.6) 09/15/22 20:08 Blood Type Cancelled 09/15/22 21:25 Rho(D) Type Cancelled 09/15/22 21:25 Antibody Screen Cancelled 09/15/22 21:25 Crossmatch See Detail 09/15/22 21:25 Discharge Plan Discharge Patient Disposition: Admitted As Inpatient Admit Provider: Jhno Zavaleta Clinical Impression: Postoperative hematoma involving circulatory system, Post-op pain Condition: Stable Discharge Diet: Usual diet Discharge Activity: Limit activity as instructed Coding Level of Care Code 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 Marline
--- NOTE | 2022-09-15 19:47 | ECG_ITS ---
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 Measurements Intervals [place] Rate: 86 P: 28 OR: 196 QRS: 41 QRSD: 70 T: -2 QT: 375 QTc: 450 Interpretive Statements SINUS RHYTHM Compared to ECG 09/13/2022 10:26:02 First degree AV block no longer present T-wave abnormality no longer present Electronically Signed On 09-16-2022 9:12:23 CDT by Naty Law M.D. [email or web address]
--- NOTE | 2022-09-15 19:54 | USR_ITS ---
PROCEDURE INFORMATION: Exam: US Duplex Right Lower Extremity Arteries Or Arterial Bypass Grafts Exam date and time: 09/15/2022 8:15 PM Age: 86 years old Clinical indication: Leg, upper; Patient HX: No revascularizatinon surgery. Patient is 2 days post cardiac cath with pain and swelling in the right groin. Both arterial and venous of the right lower extremity are ordered, all images, both for arterial and venous of the rle are on the arterial study, because ordering physician added on . ; additional info: Postcath pain/swelling, eval aneurysm/pseudo/hematoma/extrav TECHNIQUE: Imaging protocol: Right Real-time duplex scan of the arteries or arterial bypass grafts of the right lower extremity with 2-D dee scale, color Doppler flow and spectral waveform analysis. Images documented and saved. COMPARISON: No relevant prior studies available. FINDINGS: Right common femoral artery: No occlusion or significant stenosis. No pseudoaneurysm in the inguinal region. Right superficial femoral artery: No occlusion or significant stenosis. Right popliteal artery: No occlusion or significant stenosis. Right calf/foot arteries: No occlusion or significant stenosis in the visualized arteries. Dorsalis pedis artery is patent. Soft tissues: Hematoma noted in the right groin region measuring 6.0 x 1.8 x 4.6 cm. US/[place] [id number] IMPRESSION: 1. Hematoma in the right groin region measuring 6.0 x 1.8 x 4.6 cm. 2. No pseudoaneurysm, AV fistula formation, or significant arterial stenosis or occlusion.
[2022-09-15 20:15] LABS: Basophils # 0.1 10^3/uL (0.0-0.1); Basophils % 0.3 %; Eosinophils # 0.2 10^3/uL (0.0-0.8); Eosinophils % 0.6 %; Hematocrit 35.7 % (37.0-47.0); Hemoglobin 11.4 g/dL (11.5-15.3); Lymphocytes # 2.1 10^3/uL (0.8-4.8); Lymphocytes % 8.7 %; Mean Corpuscular HGB Conc 31.9 g/dL (30.0-36.0); Mean Corpuscular Volume 106.6 fl (81-99); Mean Platelet Volume 12.7 fL (7.4-10.4); Monocytes # 1.7 10^3/uL (0.2-0.9); Monocytes % 7.2 %; Neutrophils # 19.59 10^3/uL (1.8-7.7); Neutrophils % 82.5 %; Nucleated Red Blood Cells % 0 %; Platelet Count 243 10^3/cmm (130-400); Red Blood Count 3.35 10^6/uL (4.1-5.3); Red Cell Distribution Width 12.4 % (12.1-15.1); White Blood Count 23.8 10^3/uL (4.0-10.0)
[2022-09-15 20:32] LABS: INR 1.14 (0.8-1.2)
[2022-09-15 20:33] LABS: Partial Thromboplastin Time 25.9 SECONDS (23.9-36.7)
[2022-09-15 20:34] LABS: Alanine Aminotransferase 10 U/L (0-33); Albumin Level 2.6 g/dL (3.5-5.2); Alkaline Phosphatase 61 U/L (35-105); Anion Gap 15.1 (5-19); Aspartate Amino Transferase 16 U/L (0-32); Blood Urea Nitrogen 16 mg/dL (8-23); Calcium 8.1 mg/dL (8.5-10.5); Carbon Dioxide 20 mmol/L (22-29); Chloride 105 mmol/L (98-107); Globulin 2.7 g/dL (1.3-4.6); Glucose 147 mg/dL (65-115); Osmolality Calculated 286 mOsm/kg (285-295); Potassium 4.1 mmol/L (3.5-5.1); Sodium 136 mmol/L (136-145); Total Bilirubin 0.5 mg/dL (0.15-1.2); Total Protein 5.3 g/dL (6.6-8.7)
[2022-09-15 21:00] VITALS: BP 113/42; PULSE 79; RESP 16; O2SAT 95
[2022-09-15] MEDS: sodium chloride 0.9% 1,000 ML 999 ML IV (21:20)
[2022-09-15 22:00] VITALS: BP 111/48; PULSE 71; RESP 16; O2SAT 98
--- NOTE | 2022-09-15 23:04 | CTR_ITS ---
PROCEDURE INFORMATION: Exam: CT Abdomen And Pelvis With Contrast Exam date and time: 09/15/2022 11:20 PM Age: 86 years old Clinical indication: Abdominal pain; Localized; Lower; Prior surgery; Surgery date: Post-operative (0-2 days); Surgery type: Coronary stent placed on 09/15/2022. Patient HX: Patient discharged earlier today for outpatient cardiac stent procedure. Now C/O RT groin pain with swelling. ; Additional info: Abd TECHNIQUE: Imaging protocol: Computed tomography of the abdomen and pelvis with contrast. Radiation optimization: All CT scans at this facility use at least one of these dose optimization techniques: automated exposure control; mA and/or kV adjustment per patient size (includes targeted exams where dose is matched to clinical indication); or iterative reconstruction. Contrast material: OMNI 350; Contrast volume: 100 ml; Contrast route: INTRAVENOUS (IV); COMPARISON: [place] [id number] 09/15/2022 9:36 PM RADIATION DOSE METRICS: Total DLP (mGy-cm): 705.93 FINDINGS: Lungs: Mild left basilar atelectasis and/or pneumonia. Pleural spaces: Mild left pleural fluid collection. Liver: Normal. No mass. Gallbladder and bile ducts: Normal. No calcified stones. No ductal dilation. Pancreas: Normal. No ductal dilation. Spleen: Calcified splenic granulomas. Adrenal glands: Normal. No mass. Kidneys and ureters: Normal. No hydronephrosis. Stomach and bowel: Unremarkable. No obstruction. No mucosal thickening. Appendix: No evidence of appendicitis. Intraperitoneal space: Unremarkable. No free air. No significant fluid collection. Vasculature: Calcification of the abdominal aorta and/or iliac arteries consistent with atherosclerotic vessel disease. Lymph nodes: Calcified right hilar nodes and/or mediastinal nodes and/or lung granulomas consistent with old granulomatous disease. Urinary bladder: Unremarkable as visualized. Reproductive: One or more calcified uterine fibroids. Bones/joints: Levoscoliosis. Soft tissues: 9.4 x 8.5 x 2.9 cm hematoma in subcutaneous fat over the anteromedial groin and proximal thigh. Contiguous 20.8 x 10.9 x 2.6 cm hematoma over the anterolateral thigh. Possible leak from the anteromedial aspect of the proximal superficial femoral artery into the subcutaneous fat soft tissues with extension anteriorly to the area of the large subcutaneous fat hematomas. CTA right lower extremity may be helpful to document exact site of leak. CT/CT abdomen pelvis w con* [id number] IMPRESSION: 1. 9.4 x 8.5 x 2.9 cm hematoma in subcutaneous fat over the anteromedial groin and proximal thigh. 2. Contiguous 20.8 x 10.9 x 2.6 cm hematoma over the anterolateral thigh. 3. Possible leak from the anteromedial aspect of the proximal superficial femoral artery into the subcutaneous fat soft tissues with extension anteriorly to the area of the large subcutaneous fat hematomas. CTA right lower extremity may be helpful to document exact site of leak.
[2022-09-15] MEDS: iohexol 350 mg/mL 100 mL Btl IV (23:22)
[2022-09-16] VITALS (12 sets, daily range): BP systolic 91–152; BP diastolic 40–70; PULSE 20–101; RESP 16–81; TEMP 36.7–37.1; O2SAT 91–98; BMI 27.6
--- NOTE | 2022-09-16 00:13 | CTR_ITS ---
PROCEDURE INFORMATION: Exam: CTA Right Lower Extremity With Contrast Exam date and time: 09/16/2022 12:18 AM Age: 86 years old Clinical indication: Prior surgery; Surgery date: Post-operative (0-2 days); Surgery type: Cardiac stent placement on 09/15/2022. Patient HX: Concern for possible arterial leak noted on abd/pel CT. Patient C/O RT groin pain with swelling post cardiac stent procedure on 09/15/2022. ; Additional info: Concern for possible leak TECHNIQUE: Imaging protocol: Computed tomographic angiography of the Right lower extremity with contrast. 3D rendering (Not supervised by radiologist): MIP and/or 3D reconstructed images were created by the technologist. Radiation optimization: All CT scans at this facility use at least one of these dose optimization techniques: automated exposure control; mA and/or kV adjustment per patient size (includes targeted exams where dose is matched to clinical indication); or iterative reconstruction. Contrast material: OMNI 350; Contrast volume: 100 ml; Contrast route: INTRAVENOUS (IV); COMPARISON: 1. [place] [id number] 09/15/2022 8:[address] abdomen pelvis w con* [id number] 09/15/2022 11:20 PM RADIATION DOSE METRICS: Total DLP (mGy-cm): 352.55 FINDINGS: Right iliac arteries: Small volume scattered smoothly marginated plaques of the right common iliac artery with minimal stenosis. No dissection. No occlusion. Very minimal plaque of the right external iliac artery with no stenosis. No dissection. No occlusion. Right femoral/popliteal arteries: Patent right common femoral artery with no significant plaque or stenosis. No occlusion. No dissection. No injury. Right deep femoral artery patent and unremarkable with no significant stenosis or injury. Small calcified plaque at the origin of the right superficial femoral artery with minimal stenosis. No dissection. No focal injury seen. No pseudoaneurysm. Small linear defect in the mid thigh aspect of the SFA could represent a tiny thrombus or noncalcified plaque. Right infrapopliteal arteries: Not included in the imaging. Bones/joints: No acute fracture. No dislocation. Soft tissues: Soft tissue hematomas in superficial aspect of the right groin and anterior thigh with no active bleeding identified. Generalized subcutaneous soft tissue edema of anterior proximal [place]. [place] [id number] IMPRESSION: 1. No active bleeding in the thigh. 2. No focal right lower extremity arterial injury identified in the groin. 3. Redemonstration of proximal right thigh and groin soft tissue hematomas.
[2022-09-16] MEDS: iohexol 350 mg/mL 100 mL Btl IV (00:31)
--- NOTE | 2022-09-16 01:35 | PM.HP ---
Providers/Chief Complaint Admitting Physician: Jhon Zavaleta Primary Care Provider: Melissa Baker MD Chief Complaint: STENT COMPLICATIONS History of Present Illness Pleasant 86-year-old lady returns after discharge from recent hospitalization after NSTEMI, PCI and LAD stenting of high-grade lesion, UTI, please see DC summary from earlier today. She returns to the hospital due to developing painful swelling in the right groin/upper thigh. She states it was causing her quite a bit of discomfort. She states that when EMS came to pick her up when she was getting up she then was in excruciating pain or right upper/medial thigh/groin which caused her to syncopized. There was a report of blood pressure being low in route by EMS, although so far her blood pressures have been good. Heart rate 70s-80s. She is afebrile. Noted increasing leukocytosis to 20.8. Hemoglobin decreased to 11.4. Prior 13.5. Venous duplex scan of right lower extremity without DVT. Arterial duplex with noted hematoma in right groin measuring 6 x 1.8 x 4.6 cm. No pseudoaneurysm, AV fistula or significant arterial stenosis or occlusion. CT abdomen pelvis obtained showing large thigh hematoma. Question of active bleeding. Followed up with CTA which shows no active bleeding. With regards to CODE STATUS she would be okay for mechanical ventilatory support in case of respiratory failure, but would not want CPR in case of cardiopulmonary arrest. Review of Systems Const: Denies: fever(s), chills, body aches or malaise Eyes: Denies: change in vision, eye discomfort or eye redness ENMT: Denies: throat pain, oral sores or ear or mastoid pain Card: Reports: syncope and pre-syncope; Denies: chest pain, edema or dyspnea on exertion Resp: Denies: dyspnea, productive cough, change in phlegm color or hemoptysis GI: Denies: abdominal pain, nausea, vomiting, diarrhea, constipation, hematochezia or melena : Denies: flank pain, urinary frequency or hematuria Musc: Reports: extremity pain and extremity swelling; Denies: back pain Skin/Breast: Denies: rash or new lesions Neuro: Denies: headache(s), numbness in extremities, weakness in extremities, dizziness, confusion or seizure-like activity Endo: Denies: polyuria or polydipsia Jesse/Lymph: Denies: easy bleeding or tender lymph nodes All/Imm: Denies: urticaria or tongue swelling Medications/Allergies Home Medications Medication Instructions Recorded Confirmed Last Taken Type miscellaneous medical supply See Rx Instructions miscellaneous 03/16/22 09/13/22 Unknown Rx .COMPLEX #1 ea Vitamin D3 Liquid See Rx Instructions .Route .COMPLEX 09/13/22 09/13/22 Unknown History ascorbic acid-ascorbate See Rx Instructions .Route .COMPLEX 09/13/22 09/13/22 Unknown History calcium-ascorbate sod 500 mg/15 mL oral liquid (Vitamin C) cyanocobalamin (vitamin B-12) See Rx Instructions .Route .COMPLEX 09/13/22 09/13/22 Unknown History 1,000 mcg/mL oral drops (Vitamin B-12) aspirin 81 mg chewable tablet 81 mg PO DAILY #30 tabs 09/15/22 Unknown Rx atorvastatin 40 mg tablet (Lipitor) 40 mg PO DAILY 30 days #90 tabs 09/15/22 Unknown Rx cefpodoxime 200 mg tablet 200 mg PO BID 5 days #10 tabs 09/15/22 Unknown Rx clopidogrel 75 mg tablet 75 mg PO DAILY #30 tabs 09/15/22 Unknown Rx metoprolol tartrate 25 mg tablet 25 mg PO BID@0900,2100 #30 tabs 09/15/22 Unknown Rx nitroglycerin 0.4 mg sublingual 0.4 mg sublingual Q5M PRN Chest 09/15/22 Unknown Rx tablet Pain 30 days #30 tabs Allergies Allergy/AdvReac Type Severity Reaction Status Date / Time naproxen Allergy ALGY-Rash Verified 09/15/22 19:46 PFSH Acute PFSH: Medical History Fibromyalgia HTN (hypertension) Family History Other No significant family history Social History Smoking and tobacco status: current every day smoker cigarettes Years cigarettes smoked: 60 Alcohol intake: never Vitals/I&O/Wt Last Vital Signs Temp 97.7 F 09/15/22 19:41 Pulse 87 09/16/22 00:20 Resp 19 H 09/16/22 00:20 BP 122/40 09/16/22 00:20 Pulse Ox 94 09/16/22 00:20 O2 Del Method 09/16/22 00:20 09/15/22 09/15/22 09/16/22 14:59 22:59 06:59 Intake Total 1000 / 1000 Balance 1000 / 1000 Weight last 48 hrs Weight 72.575 kg Physical Exam Const: COMMON NORMALS: patient oriented x3 and alert GENERAL APPEARANCE: cooperative ORIENTATION/CONSCIOUSNESS: Yes awake HENMT: COMMON NORMALS: oropharynx normal Neck/C-Spine: COMMON NORMALS: no JVD Resp: COMMON NORMALS: normal respiratory effort and clear to auscultation bilaterally AUSCULTATION: clear to auscultation bilaterally Cardio: COMMON NORMALS: no JVD, regular rhythm, S1 normal heart sound present, S2 normal heart sound present and No murmurs present (Cardio) RHYTHM: regular rhythm HEART SOUNDS: S1 normal heart sound present and S2 normal heart sound present GI: COMMON NORMALS: Normal to inspection, nondistended, normoactive bowel sounds present, Soft to palpation and non-tender PALPATION: Yes Soft to palpation Extremity: COMMON NORMALS: no joint enlargement and no pedal edema NARRATIVE EXTREMITY EXAM: L groin bruising, inferior groin and anteromedial thigh swelling and bruising No pulsatile mass. Neuro: COMMON NORMALS: patient oriented x3 and moves all extremities SENSORIUM/ORIENTATION: Yes alert Skin: COMMON NORMALS: no rashes or lesions noted GENERAL SKIN EXAM: no rashes or lesions noted Data : 09/16/22 01:32 09/15/22 20:08 A&P Assessment and plan (1) Postoperative hematoma involving circulatory system: CT abdomen pelvis with 9.4 x 8.5 x 2.9 cm hematoma and subcutaneous fat over the medial groin and proximal thigh. Contiguous 20.8 x 10.9 x 2.6 intramural hematoma over anterior lateral thigh. Possible leak from anteromedial aspect of proximal superficial femoral artery into subcutaneous fat soft tissue with extension anteriorly to the area of the large subcutaneous fat hematomas. Follow-up with CTA which shows no active bleeding. No pseudoaneurysm on arterial duplex. No DVT on venous duplex. She is placed for observation. Hemoglobin with decline to 9.8. Did have orthostatic symptoms, reports presyncope or syncope when trying to stand when being picked up by EMS. Type and screen have been requested. I will request for 1 unit to be available. Follow-up hemoglobin level. BP soft, hold metoprolol. (2) Post-op pain: At hematoma. Plan Recent NSTEMI, status post LAD stenting. UTI: ceftriaxone HTN Fibromyalgia Attestations Medical Necessity Statement*: Placed in observation for right thigh and groin hematoma following coronary angiogram with acute anemia. 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
[2022-09-16 01:37] LABS: Hematocrit 30.5 % (37.0-47.0); Hemoglobin 9.8 g/dL (11.5-15.3)
--- NOTE | 2022-09-16 01:57 | PC.NURSE ---
ADMIT NOTE Pt received to room from ER at 0145. Is alert and oriented. Says she just went home yesterday after having stent placement. Says she was doing well and was taking it easy and not walking around too much. [place] pulling sensation in right groin and started swelling. Reports was quite painful and she passed out with it. Says is not really painful now but is tender & sore. Has bruising and firmness/ swelling to right groin, labia/isiah area and upper thigh. Strong pedal pulse palpable. Oriented to call light. RN completing admission assessment
--- NOTE | 2022-09-16 04:18 | PC.NURSE ---
VITALS TAKEN AND BP DOCUMENTED 91/41. DR. NEELY WAS NOTIFIED AND ORDERED BOLUS OF LR. PATIENT ALERT AND ORIENTED, AND INFORMED OF LOW BP.
--- NOTE | 2022-09-16 04:34 | PC.NURSE ---
BP RETAKEN AFTER LR BOLUS, DOCUMENTED AT 112/54. DR. NEELY NOTIFIED.
[2022-09-16 04:39] LABS: Basophils % 0.2 %; Eosinophils # 0.1 10^3/uL (0.0-0.8); Eosinophils % 0.3 %; Hematocrit 29.2 % (37.0-47.0); Hemoglobin 9.3 g/dL (11.5-15.3); Lymphocytes # 1.9 10^3/uL (0.8-4.8); Lymphocytes % 12.7 %; Mean Corpuscular HGB Conc 31.8 g/dL (30.0-36.0); Mean Corpuscular Hemoglobin 33.3 pg (28.0-34.0); Mean Corpuscular Volume 104.7 fl (81-99); Mean Platelet Volume 12.4 fL (7.4-10.4); Monocytes # 1.4 10^3/uL (0.2-0.9); Monocytes % 9.2 %; Neutrophils # 11.43 10^3/uL (1.8-7.7); Nucleated Red Blood Cells % 0 %; Platelet Count 211 10^3/cmm (130-400); Red Blood Count 2.79 10^6/uL (4.1-5.3); Red Cell Distribution Width 12.5 % (12.1-15.1); White Blood Count 14.9 10^3/uL (4.0-10.0)
[2022-09-16] MEDS: cefTRIAXone 1,000 MG in sodium chloride 0.9% (plus) 50 ML 100 MG IV (04:57)
[2022-09-16] MEDS: acetaminophen 325 mg Tablet 650 MG PO (04:57)
[2022-09-16 05:05] LABS: Alanine Aminotransferase 8 U/L (0-33); Albumin Level 2.5 g/dL (3.5-5.2); Alkaline Phosphatase 49 U/L (35-105); Aspartate Amino Transferase 15 U/L (0-32); Blood Urea Nitrogen 13 mg/dL (8-23); Calcium 7.9 mg/dL (8.5-10.5); Carbon Dioxide 24 mmol/L (22-29); Chloride 105 mmol/L (98-107); Globulin 2.3 g/dL (1.3-4.6); Glucose 104 mg/dL (65-115); Osmolality Calculated 282 mOsm/kg (285-295); Sodium 136 mmol/L (136-145); Total Bilirubin 0.7 mg/dL (0.15-1.2); Total Protein 4.8 g/dL (6.6-8.7)
[2022-09-16 05:20] LABS: Anion Gap 11.1 (5-19); Potassium 4.1 mmol/L (3.5-5.1)
--- NOTE | 2022-09-16 07:33 | PC.PHAR ---
pt states she takes care of her own medications-pt states the pharmacy delivered the medications on 09/15/22 pt states never started taking any of the medications she was prescribed since she was discharged-notes are made in the pharmacy comments
[2022-09-16 08:02] LABS: Hemoglobin 8.8 g/dL (11.5-15.3)
[2022-09-16] MEDS: clopidogrel 75 mg Tablet PO (08:36)
[2022-09-16] MEDS: aspirin 81 mg Chew Tablet PO (08:36)
[2022-09-16] MEDS: atorvastatin 40 mg Tablet PO (08:36)
--- NOTE | 2022-09-16 13:30 | PM.MISC ---
Miscellaneous Note Note: Seen this morning. Right thigh area examined. Patient states she feels the swelling is improving. There is no actual fluctuance that I can feel however skin is starting to feel little soft. Hemoglobin stable. 9.0. 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 She also felt very lightheaded/. She feels a lot better now.
[2022-09-16 16:25] LABS: Hemoglobin 8.7 g/dL (11.5-15.3)
--- NOTE | 2022-09-16 21:09 | PM.CONSULT ---
Providers/Reason For Consult Consulting Physician/Specialty*: Dr. Law, Cardiology Reason for Consult*: Right groin access site hematoma Attending Physician: Ekta Maddox MD Primary Care Provider: Melissa Baker MD History of Present Illness History of Present Illness Sonya Ivory is a 86 year old female was recently admitted with chest pain.? She was treated for NSTEMI.? Cardiac catheterization revealed a high-grade lesion in proximal LAD and underwent PCI of the proximal LAD lesion. She was discharged on 09/15/22 and was admitted few hours later with painful swelling in the right groin/upper thigh.? She called EMS and when she was getting up she excruciating pain in right upper/medial thigh/groin which caused her to syncopized.? Hemoglobin decreased to 8.9 from 13.5.? Venous duplex scan of right lower extremity without DVT.? Arterial duplex with noted hematoma in right groin measuring 6 x 1.8 x 4.6 cm.? No pseudoaneurysm, AV fistula or significant arterial stenosis or occlusion. CT abdomen pelvis obtained showing large thigh hematoma.? Question of active bleeding.? Followed up with CTA which shows no active bleeding. She is laying comfortably in bed at this time. No chest pain, SOB. Mild right groin pain. Review of Systems Const: Denies: fever(s), chills, body aches or malaise Eyes: Denies: change in vision, eye discomfort or eye redness ENMT: Denies: throat pain, oral sores or ear or mastoid pain Card: Reports: syncope and pre-syncope; Denies: chest pain, edema or dyspnea on exertion Resp: Denies: dyspnea, productive cough, change in phlegm color or hemoptysis GI: Denies: abdominal pain, nausea, vomiting, diarrhea, constipation, hematochezia or melena : Denies: flank pain, urinary frequency or hematuria Musc: Reports: extremity pain and extremity swelling; Denies: back pain Skin/Breast: Denies: rash or new lesions Neuro: Denies: headache(s), numbness in extremities, weakness in extremities, dizziness, confusion or seizure-like activity Endo: Denies: polyuria or polydipsia Jesse/Lymph: Denies: easy bleeding or tender lymph nodes All/Imm: Denies: urticaria or tongue swelling Medications/Allergies Home Medications Medication Instructions Recorded Confirmed Last Taken Type miscellaneous medical supply See Rx Instructions miscellaneous 03/16/22 09/16/22 Unknown Rx .COMPLEX #1 ea Vitamin D3 Liquid See Rx Instructions .Route .COMPLEX 09/13/22 09/16/22 Unknown History ascorbic acid-ascorbate See Rx Instructions .Route .COMPLEX 09/13/22 09/16/22 Unknown History calcium-ascorbate sod 500 mg/15 mL oral liquid (Vitamin C) cyanocobalamin (vitamin B-12) See Rx Instructions .Route .COMPLEX 09/13/22 09/16/22 Unknown History 1,000 mcg/mL oral drops (Vitamin B-12) aspirin 81 mg chewable tablet 81 mg PO DAILY #30 tabs 09/15/22 09/16/22 Unknown Rx atorvastatin 40 mg tablet (Lipitor) 40 mg PO DAILY 30 days #90 tabs 09/15/22 09/16/22 Unknown Rx cefpodoxime 200 mg tablet 200 mg PO BID 5 days #10 tabs 09/15/22 09/16/22 Unknown Rx clopidogrel 75 mg tablet 75 mg PO DAILY #30 tabs 09/15/22 09/16/22 Unknown Rx metoprolol tartrate 25 mg tablet 25 mg PO BID@0900,2100 #30 tabs 09/15/22 09/16/22 Unknown Rx nitroglycerin 0.4 mg sublingual 0.4 mg sublingual Q5M PRN Chest 09/15/22 09/16/22 Unknown Rx tablet Pain 30 days #30 tabs Allergies Allergy/AdvReac Type Severity Reaction Status Date / Time naproxen Allergy ALGY-Rash Verified 09/16/22 07:27 Current Medications Generic Name Dose Route Start Last Admin Trade Name [place] PRN Reason Stop Dose Admin Acetaminophen 650 mg 09/16/22 03:44 09/16/22 04:57 Acetaminophen 325 Mg Tablet PO 650 mg Q6H PRN Administration Mild/Mod Pain Or Temp >/= 101 Aspirin 81 mg 09/16/22 09:00 09/16/22 08:36 Aspirin 81 Mg Chew Tablet PO 81 mg DAILY DYLAN Administration Atorvastatin Calcium 40 mg 09/16/22 09:00 09/16/22 08:36 Atorvastatin 40 Mg Tablet PO 40 mg DAILY DYLAN Administration Clopidogrel Bisulfate 75 mg 09/16/22 09:00 09/16/22 08:36 Clopidogrel 75 Mg Tablet PO 75 mg DAILY DYLAN Administration Ceftriaxone Sodium 1,000 mg/ 50 mls @ 100 mls/hr 09/16/22 03:45 09/16/22 05:46 Sodium Chloride IV Infused Q24H DYLAN Infusion Protocol PFSH Acute PFSH: Medical History Fibromyalgia HTN (hypertension) Family History Other No significant family history Social History Smoking and tobacco status: current every day smoker cigarettes Years cigarettes smoked: 60 Alcohol intake: never Vitals/I&O/Wt Last Vital Signs Temp 98.7 F 09/16/22 20:00 Pulse 101 H 09/16/22 20:00 Resp 18 09/16/22 20:00 BP 131/64 09/16/22 20:00 Pulse Ox 91 09/16/22 20:00 O2 Del Method 09/16/22 16:00 09/16/22 09/16/22 09/16/22 06:59 14:59 22:59 Intake Total 1300 / 1300 600 / 600 240 / 840 Output Total 125 / 125 100 / 100 Balance 1175 / 1175 600 / 600 140 / 740 Weight last 48 hrs Weight 171 lb 2 oz Weight 160 lb Physical Exam Narrative: GENERAL: Averagely built and averagely nourished in no acute distress HEENT: Extraocular movement intact. No pallor or icterus. NECK: central trachea, No JVD, No carotid bruit. CARDIOVASCULAR SYSTEM: S1-S2 regular. No murmur rubs or gallops. RESPIRATORY SYSTEM: Chest clear to auscultation. No wheezes rhonchi or rubs heard. ABDOMEN: Soft, nontender and nondistended. Normal bowel sounds present. EXTREMITIES: No cyanosis or edema. right groin soft hematoma, anteriorly and medially. bruising+ BUSINESS JOB TITLES: Patient is alert oriented ?3. No focal neurological deficits. Data : 09/17/22 03:25 09/17/22 03:25 A&P Assessment and plan (1) Hematoma following angiography: Hb stable, site looks good. 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
[2022-09-17] MEDS: cefTRIAXone 1,000 MG in sodium chloride 0.9% (plus) 50 ML 100 MG IV (03:59)
[2022-09-17 04:00] VITALS: BP 102/48; PULSE 85; RESP 16; TEMP 36.9; O2SAT 94
[2022-09-17 04:42] LABS: Basophils % 0.4 %; Eosinophils # 0.3 10^3/uL (0.0-0.8); Eosinophils % 2.6 %; Hematocrit 23.7 % (37.0-47.0); Hemoglobin 7.6 g/dL (11.5-15.3); Lymphocytes # 1.7 10^3/uL (0.8-4.8); Lymphocytes % 16.6 %; Mean Corpuscular HGB Conc 32.1 g/dL (30.0-36.0); Mean Corpuscular Hemoglobin 33.5 pg (28.0-34.0); Mean Corpuscular Volume 104.4 fl (81-99); Mean Platelet Volume 12.6 fL (7.4-10.4); Monocytes # 1.2 10^3/uL (0.2-0.9); Monocytes % 11.2 %; Neutrophils # 7.19 10^3/uL (1.8-7.7); Neutrophils % 68.6 %; Nucleated Red Blood Cells % 0 %; Platelet Count 195 10^3/cmm (130-400); Red Blood Count 2.27 10^6/uL (4.1-5.3); Red Cell Distribution Width 12.9 % (12.1-15.1); White Blood Count 10.5 10^3/uL (4.0-10.0)
[2022-09-17 05:09] LABS: Anion Gap 11.7 (5-19); Blood Urea Nitrogen 12 mg/dL (8-23); Carbon Dioxide 25 mmol/L (22-29); Chloride 105 mmol/L (98-107); Glucose 85 mg/dL (65-115); Osmolality Calculated 285 mOsm/kg (285-295); Potassium 3.7 mmol/L (3.5-5.1); Sodium 138 mmol/L (136-145)
[2022-09-17 08:00] VITALS: BP 118/55; PULSE 93; RESP 16; TEMP 36.4; O2SAT 93
[2022-09-17] MEDS: clopidogrel 75 mg Tablet PO (08:35)
[2022-09-17] MEDS: atorvastatin 40 mg Tablet PO (08:36)
[2022-09-17] MEDS: aspirin 81 mg Chew Tablet PO (08:36)
--- NOTE | 2022-09-17 08:40 | P.PN_ITS ---
Subjective Subjective: Seen this morning. Hemoglobin 7.7. Unit of blood was ordered. However repeat hemoglobin is 8.0. Hold off on transfusion at this time. We will recheck next hemoglobin and decide. Patient's hematoma is improving. Thigh appears softer as well. Vitals are stable. Patient has been getting up a nd moving around in the room. Denies chest pain, shortness of breath. She is reluctant to receive the blood transfusion. Vitals/I&O/Wt Last Vital Signs Temp 97.6 F 09/17/22 08:00 Pulse 93 09/17/22 08:00 Resp 16 09/17/22 08:00 BP 118/55 09/17/22 08:00 Pulse Ox 93 09/17/22 08:00 O2 Del Method 09/17/22 08:00 09/16/22 09/17/22 09/17/22 22:59 06:59 14:59 Intake Total 240 / 840 50 / 890 Output Total 100 / 100 150 / 250 Balance 140 / 740 -100 / 640 Weight last 48 hrs Weight 77.621 kg Weight 72.575 kg Physical Exam Narrative: General: Alert oriented x3, patient seen sitting up in chair HEENT: Normocephalic, atraumatic, EOMI, room air Cardio: Regular rate rhythm, normal S1-S2, Respiratory: Good bilateral air entry, no wheezes no rhonchi appreciated GI: Abdomen soft, nontender, nondistended, bowel sounds +, Nontender to palpation Behavior: Appropriate and cooperative Extremities: Bruising present at right thigh area near the groin. Area marked. Bruising not spreading. Soft to palpation. Improved compared to yesterday. 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 Continue aspirin Plavix atorvastatin ? Continue ceftriaxone for UTI diagnosed at previous admission. ? Continue to monitor hemoglobin every 8 hours today. Hemoglobin 7.6 this morning. 1 unit ordered however being held at this time as hemoglobin improved on its own to 8.0. Patient has been getting up and moving around. She is overall better. Denies chest pain, shortness of breath. Patient is reluctant to receive blood transfusion. We will recheck hemoglobin this afternoon and then decide. ? We will need to monitor hemoglobin today. ? Possible discharge in a.m. ? All questions answered. Full code Attestations Medical Necessity Statement*: Continue to monitor patient in the hospital today. 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
[2022-09-17 10:01] LABS: Hematocrit 24.8 % (37.0-47.0)
--- NOTE | 2022-09-17 10:44 | PC.NURSE ---
Patient's Hemoglobin is up to [address]. Maddox's verbal order we will wait until the next repeat Hemoglobin at 4 to see if we should give the unit of blood or not.
[2022-09-17 11:58] VITALS: BP 106/62; PULSE 88; RESP 16; TEMP 36.4; O2SAT 94
[2022-09-17 15:28] VITALS: BP 126/74; PULSE 85; RESP 16; TEMP 36.4; O2SAT 94
[2022-09-17 16:49] LABS: Hematocrit 25.3 % (37.0-47.0); Hemoglobin 8.1 g/dL (11.5-15.3)
[2022-09-17 20:00] VITALS: BP 117/64; PULSE 89; RESP 18; TEMP 37.1; O2SAT 92
[2022-09-18] VITALS: BP 119/57; PULSE 88; RESP 17; TEMP 37.2; O2SAT 93
[2022-09-18 01:35] LABS: Hematocrit 24.9 % (37.0-47.0); Hemoglobin 8.1 g/dL (11.5-15.3)
[2022-09-18 04:00] VITALS: BP 149/75; PULSE 81; RESP 20; TEMP 37; O2SAT 90
[2022-09-18] MEDS: cefTRIAXone 1,000 MG in sodium chloride 0.9% (plus) 50 ML 100 MG IV (04:04)
--- NOTE | 2022-09-18 06:50 | PC.NURSE ---
Report given to Brenda MILLARD at this time
[2022-09-18 08:00] VITALS: BP 125/69; PULSE 86; RESP 15; TEMP 36.9; O2SAT 94
[2022-09-18 09:11] LABS: Hematocrit 26.5 % (37.0-47.0); Hemoglobin 8.6 g/dL (11.5-15.3)
[2022-09-18] MEDS: atorvastatin 40 mg Tablet PO (10:27)
[2022-09-18] MEDS: clopidogrel 75 mg Tablet PO (10:27)
[2022-09-18] MEDS: aspirin 81 mg Chew Tablet PO (10:27)
--- NOTE | 2022-09-18 11:18 | PM.DCS ---
Discharge Providers Date of Admission: 09/16/22 00:57 Date of Discharge: September 18, 2022 Attending Provider at Admission: Jhon Zavaleta Attending Provider at Discharge: Hector Hunt MD Consults: Cardiology: Dr. Law Primary Care Provider: Melissa Baker MD Diagnoses at Discharge Discharge Diagnosis (1) UTI (urinary tract infection): Status: Acute (2) Elevated brain natriuretic peptide (BNP) level: Status: Acute (3) Elevated blood pressure reading: Status: Acute (4) 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: Status: Acute (5) Tobacco abuse: Status: Acute Reason for Visit Reason for Visit: STENT COMPLICATIONS Brief History: History as per HPI: Pleasant 86-year-old lady returns after discharge from recent hospitalization after NSTEMI, PCI and LAD stenting of high-grade lesion, UTI, please see DC summary from earlier today.? She returns to the hospital due to developing painful swelling in the right groin/upper thigh.? She states it was causing her quite a bit of discomfort.? She states that when EMS came to pick her up when she was getting up she then was in excruciating pain or right upper/medial thigh/groin which caused her to syncopized.? There was a report of blood pressure being low in route by EMS, although so far her blood pressures have been good.? Heart rate 70s-80s.? She is afebrile.? Noted increasing leukocytosis to 20.8.? Hemoglobin decreased to 11.4.? Prior 13.5.? Venous duplex scan of right lower extremity without DVT.? Arterial duplex with noted hematoma in right groin measuring 6 x 1.8 x 4.6 cm.? No pseudoaneurysm, AV fistula or significant arterial stenosis or occlusion. CT abdomen pelvis obtained showing large thigh hematoma.? Question of active bleeding.? Followed up with CTA which shows no active bleeding. With regards to CODE STATUS she would be okay for mechanical ventilatory support in case of respiratory failure, but would not want CPR in case of cardiopulmonary arrest. Hospital Course Hospital Course Patient was under the hospital further evaluation and management. Cardiology was consulted. She was found to have an extensive hematoma without pseudoaneurysm at the site of recent cardiac catheterization. CTA was done which was negative for any active bleeding. Her hemoglobin remained stable without transfusion during hospitalization and is 8.6 on the day of discharge. Patient is able to ambulate without any difficulty. She is been discharged hemodynamically stable condition with advised to follow-up with her primary care provider within next 1 week for repeat CBC. She is advised to continue with her cardiology follow-up as before. Physical Exam Narrative: General: Alert oriented x3, no acute distress HEENT: Normocephalic, atraumatic, EOMI, room air Cardio: Regular rate rhythm, normal S1-S2, Respiratory: Good bilateral air entry, no wheezes no rhonchi appreciated GI: Abdomen soft, nontender, nondistended, bowel sounds +, Nontender to palpation Behavior: Appropriate and cooperative Extremities: Bruising present at right thigh area near the groin. Area marked. Bruising not spreading. Soft to palpation. Improved compared to yesterday. Discharge Data Studies Completed and Pending Completed Studies During Hospitalization Category Date Time Status CT abdomen pelvis w con* [id number] Stat Cat Scan 09/15/22 23:[address] [id number] Stat Cat Scan 09/16/22 00:13 [place] [id number] Stat Ultrasound 09/15/22 Completed US arterial duplex lower extremity RT [CV arterial Ultrasound 09/15/22 19:54 [place] [id number]] Stat Pending at discharge Category Date Time Status Hemoglobin and Hematocrit Q8H Lab 09/18/22 16:51 Ordered Hemoglobin and Hematocrit Q8H Lab 09/19/22 00:51 Ordered Leukocyte Reduced RBC Routine Lab 09/16/22 03:38 Results Type and Screen Stat Lab 09/15/22 21:25 Results Radiology Impressions Venous Duplex 09/15/22 00:00 IMPRESSION: No evidence of deep vein thrombosis. Duplex Scan Lower Extremity Artery 09/15/22 19:54 IMPRESSION: 1. Hematoma in the right groin region measuring 6.0 x 1.8 x 4.6 cm. 2. No pseudoaneurysm, AV fistula formation, or significant arterial stenosis or occlusion. Abdomen/Pelvis CT 09/15/22 23:04 IMPRESSION: 1. 9.4 x 8.5 x 2.9 cm hematoma in subcutaneous fat over the anteromedial groin and proximal thigh. 2. Contiguous 20.8 x 10.9 x 2.6 cm hematoma over the anterolateral thigh. 3. Possible leak from the anteromedial aspect of the proximal superficial femoral artery into the subcutaneous fat soft tissues with extension anteriorly to the area of the large subcutaneous fat hematomas. CTA right lower extremity may be helpful to document exact site of leak. ADDENDUM: 09/16/22 0023 THIS REPORT CONTAINS FINDINGS THAT MAY BE CRITICAL TO PATIENT CARE. The findings were verbally communicated via telephone conference with YEIMI BRAGG at 12:21 AM CDT on 09/16/2022. The findings were acknowledged and understood. Lower Extremity CTA 09/16/22 00:13 IMPRESSION: 1. No active bleeding in the thigh. 2. No focal right lower extremity arterial injury identified in the groin. 3. Redemonstration of proximal right thigh and groin soft tissue hematomas. Laboratory Results WBC 10.5 10^3/uL (4.0-10.0) H 09/17/22 03:25 RBC 2.27 10^6/uL (4.1-5.3) L 09/17/22 03:25 Hgb 8.6 g/dL (11.5-15.3) L 09/18/22 08:58 Hct 26.5 % (37.0-47.0) L 09/18/22 08:58 MCV 104.4 fl (81-99) H 09/17/22 03:25 MCH 33.5 pg (28.0-34.0) 09/17/22 03:25 MCHC 32.1 g/dL (30.0-36.0) 09/17/22 03:25 RDW 12.9 % (12.1-15.1) 09/17/22 03:25 Plt Count 195 10^3/cmm (130-400) 09/17/22 03:25 MPV 12.6 fL (7.4-10.4) H 09/17/22 03:25 Neut % (Auto) 68.6 % 09/17/22 03:25 Lymph % (Auto) 16.6 % 09/17/22 03:25 Cannon % (Auto) 11.2 % 09/17/22 03:25 Eos % (Auto) 2.6 % 09/17/22 03:25 Baso % (Auto) 0.4 % 09/17/22 03:25 Neut # (Auto) 7.19 10^3/uL (1.8-7.7) 09/17/22 03:25 Lymph # (Auto) 1.7 10^3/uL (0.8-4.8) 09/17/22 03:25 Cannon # (Auto) 1.2 10^3/uL (0.2-0.9) H 09/17/22 03:25 Eos # (Auto) 0.3 10^3/uL (0.0-0.8) 09/17/22 03:25 Baso # (Auto) 0.0 10^3/uL (0.0-0.1) 09/17/22 03:25 Nucleated RBC % (auto) 0 % 09/17/22 03:25 Nucleated RBCs # 0.0 /100WBC 09/17/22 03:25 PT 14.90 SECONDS (12.1-14.9) 09/15/22 20:08 INR 1.14 (0.8-1.2) 09/15/22 20:08 APTT 25.9 SECONDS (23.9-36.7) 09/15/22 20:08 Sodium 138 mmol/L (136-145) 09/17/22 03:25 Potassium 3.7 mmol/L (3.5-5.1) 09/17/22 03:25 Chloride 105 mmol/L (98-107) 09/17/22 03:25 Carbon Dioxide 25 mmol/L (22-29) 09/17/22 03:25 Anion Gap 11.7 (5-19) 09/17/22 03:25 BUN 12 mg/dL (8-23) 09/17/22 03:25 Creatinine 0.7 mg/dL (0.5-0.9) 09/17/22 03:25 GFR Calculation Not Reportable 09/17/22 03:25 Glucose 85 mg/dL (65-115) 09/17/22 03:25 Calculated Osmolality 285 mOsm/kg (285-295) 09/17/22 03:25 Calcium 8.0 mg/dL (8.5-10.5) L 09/17/22 03:25 Total Bilirubin 0.7 mg/dL (0.15-1.2) 09/16/22 04:26 AST 15 U/L (0-32) 09/16/22 04:26 ALT 8 U/L (0-33) 09/16/22 04:26 Alkaline Phosphatase 49 U/L (35-105) 09/16/22 04:26 Total Protein 4.8 g/dL (6.6-8.7) L 09/16/22 04:26 Albumin 2.5 g/dL (3.5-5.2) L 09/16/22 04:26 Globulin 2.3 g/dL (1.3-4.6) 09/16/22 04:26 Blood Type O Positive 09/15/22 21:25 Rho(D) Type Positive 09/15/22 21:25 Antibody Screen Negative 09/15/22 21:25 Crossmatch See Detail 09/15/22 21:25 Vitals Last Vital Signs Temp 98.5 F 09/18/22 08:00 Pulse 86 09/18/22 08:00 Resp 15 09/18/22 08:00 BP 125/69 09/18/22 08:00 Pulse Ox 94 09/18/22 08:00 O2 Del Method 09/18/22 08:00 Discharge Plan Discharge Patient Disposition: Home Condition: Stable Prescriptions: New ferrous gluconate 324 mg (37.5 mg iron) tablet 324 mg PO BID Qty: 60 0RF Continued miscellaneous medical supply Misc See Rx Instructions miscellaneous .COMPLEX Qty: 1 0RF Rx Instructions: cane miscellaneous; Vitamin C 500 mg/15 mL Liquid See Rx Instructions .ROUTE .COMPLEX Rx Instructions: 10 drops po daily as needed Vitamin B-12 1,000 mcg/mL Drops See Rx Instructions .ROUTE .COMPLEX Rx Instructions: 10 drops po daily as needed Vitamin D3 Liquid See Rx Instructions .ROUTE .COMPLEX Rx Instructions: 10 drops po daily as needed cefpodoxime 200 mg tablet 200 mg PO BID 5 Days Qty: 10 0RF Rx Instructions: must administer with a meal/food aspirin 81 mg Tablet,Chewable 81 mg PO DAILY Qty: 30 0RF clopidogrel 75 mg Tablet 75 mg PO DAILY Qty: 30 0RF atorvastatin [Lipitor] 40 mg tablet 40 mg PO DAILY 30 Days Qty: 90 0RF nitroglycerin 0.4 mg Tablet, Sublingual 0.4 mg sublingual Q5M PRN (Reason: Chest Pain) 30 Days Qty: 30 0RF metoprolol tartrate 25 mg Tablet 25 mg PO BID@0900,2100 Qty: 30 0RF Discharge Orders: Discharge Order (Routine); Ordered 09/18/22 Ordered By: Hector Hunt Referrals: Melissa Baker MD [Primary Care Provider] - 7-10 days Discharge Diet: Usual diet Discharge Activity: Limit activity as instructed Patient Instructions: Hematoma (ED), Left Heart Catheterization (DC), Opioid Safety Activity Restrictions/Additional Instructions: Please follow-up with a primary care provider within 1 week and see repeat CBC. Please follow-up with cardiology as advised in detail before. Please continue to cold compressions on the site of hematoma. Discharge Attestations Time Spent in Discharge Care*: greater than 30 min Specific Discharge Activities: educating patient, discussing with top case assembler/social workers/dc planners, documenting/other paperwork and evaluating patient/reviewing data Status at Discharge: Cognitive status at discharge: cognitively intact, Behavioral status at discharge: cooperative, Functional status at discharge: independent ambulation, Overall status at discharge: patient is back to baseline Quality Metrics Clinical Quality Measures [ No reported AMI, CVA or VTE this stay] Coding Level of Care Code Acute Chg FW DC note Diagnoses UTI (urinary tract infection) N39.0 Elevated brain natriuretic peptide (BNP) level R79.89 Elevated blood pressure reading R03.0 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 I25.110 Tobacco abuse Z72.0
[2022-09-18 12:00] VITALS: BP 111/59; PULSE 94; RESP 16; TEMP 36.8; O2SAT 95
--- NOTE | 2022-09-18 14:46 | PC.NURSE ---
Discussed discharge with patient including follow up appointments, new medications with no questions. Verbalized understanding.
[2022-09-18 15:58] VITALS: BP 111/59; PULSE 94; RESP 16; TEMP 36.8; O2SAT 95
== END 2022-09-18 15:30 | disposition home or self-care (01) ==
LOC: ER 09-16 00:58 → MEDSURG 09-16 01:30
PROVIDERS: Emergency Medicine; Internal Medicine; Admitting Provider Internal Medicine; Emergency Provider Emergency Medicine; PCP Family Medicine; Visit Provider Student in an Organized Health Care Education/Training Program
DX: N39.0 Urinary tract infection, site not specified (principal); R79.89 Other specified abnormal findings of blood chemistry; G89.18 Other acute postprocedural pain; R10.31 Right lower quadrant pain; R60.0 Localized edema; R03.0 Elevated blood-pressure reading, without diagnosis of hypertension; I25.110 Atherosclerotic heart disease of native coronary artery with unstable angina pectoris; M79.7 Fibromyalgia; I10 Essential (primary) hypertension; F17.210 Nicotine dependence, cigarettes, uncomplicated; E78.5 Hyperlipidemia, unspecified; D64.9 Anemia, unspecified; M79.81 Nontraumatic hematoma of soft tissue
CPT/HCPCS: 36415; 73706; 74177; 80048; 80053; 85014; 85018; 85025; 85610; 85730; 86850; 86900; 86920; 93005; 93926; 93971; 96365; 99285; G0378; J0696; J7030; J7120; Q9967

== ENCOUNTER → 2022-12-06 15:41 | Outpatient (BNVA) | payer MEDICARE, SELFPAY | PROVIDERS: PCP Family Medicine; Visit Provider Internal Medicine Cardiovascular Disease | DX: I21.4 Non-ST elevation (NSTEMI) myocardial infarction (principal); I25.10 Atherosclerotic heart disease of native coronary artery without angina pectoris; Z98.890 Other specified postprocedural states; I10 Essential (primary) hypertension; E78.5 Hyperlipidemia, unspecified; F17.210 Nicotine dependence, cigarettes, uncomplicated | CPT/HCPCS: 36415; 80053; 80061; 83721; 85025; 99214 ==

== ENCOUNTER → 2023-06-06 13:10 | Outpatient (BNVA) | payer MEDICARE, SELFPAY | PROVIDERS: PCP Family Medicine; Visit Provider Internal Medicine Cardiovascular Disease | DX: I25.10 Atherosclerotic heart disease of native coronary artery without angina pectoris (principal); I10 Essential (primary) hypertension; E78.5 Hyperlipidemia, unspecified; Z72.0 Tobacco use | CPT/HCPCS: 99214 ==

== ENCOUNTER → 2023-12-14 15:26 | Outpatient (BNVA) | payer MEDICARE, SELFPAY | PROVIDERS: PCP Family Medicine; Visit Provider Internal Medicine Cardiovascular Disease | DX: I25.10 Atherosclerotic heart disease of native coronary artery without angina pectoris (principal); I10 Essential (primary) hypertension; E78.2 Mixed hyperlipidemia; Z72.0 Tobacco use | CPT/HCPCS: 99214 ==

== ENCOUNTER → 2024-01-08 13:13 | Outpatient (BNVA) | payer MEDICARE, SELFPAY | PROVIDERS: PCP Family Medicine; Referring Provider Internal Medicine Cardiovascular Disease; Visit Provider Internal Medicine Cardiovascular Disease | DX: E78.5 Hyperlipidemia, unspecified (principal); I25.10 Atherosclerotic heart disease of native coronary artery without angina pectoris | CPT/HCPCS: 80061; 80076 ==

== ENCOUNTER → 2024-02-08 14:23 | Outpatient (BNVA) | payer MEDICARE, SELFPAY | PROVIDERS: PCP Family Medicine; Visit Provider Nurse Practitioner Family | DX: M17.11 Unilateral primary osteoarthritis, right knee (principal); M25.561 Pain in right knee | CPT/HCPCS: 73562 ==

== ENCOUNTER → 2024-06-10 16:08 | Outpatient (BNVA) | payer MEDICARE, SELFPAY | PROVIDERS: PCP Family Medicine; Visit Provider Internal Medicine Cardiovascular Disease | DX: I10 Essential (primary) hypertension (principal); E78.2 Mixed hyperlipidemia; I25.10 Atherosclerotic heart disease of native coronary artery without angina pectoris; I44.30 Unspecified atrioventricular block; Z72.0 Tobacco use | CPT/HCPCS: 99214 ==

== ENCOUNTER → 2025-01-02 10:28 | Outpatient (BNVA) | payer BC, SELFPAY | PROVIDERS: PCP Family Medicine; Visit Provider Nurse Practitioner Family | DX: I25.10 Atherosclerotic heart disease of native coronary artery without angina pectoris (principal); E78.2 Mixed hyperlipidemia | CPT/HCPCS: 36415; 80061 ==

== ENCOUNTER → 2025-06-30 15:24 | Outpatient (BNVA) | payer MEDICARE, SELFPAY | PROVIDERS: PCP Family Medicine; Visit Provider Internal Medicine Cardiovascular Disease | DX: I25.10 Atherosclerotic heart disease of native coronary artery without angina pectoris (principal); I10 Essential (primary) hypertension; E78.5 Hyperlipidemia, unspecified; I44.30 Unspecified atrioventricular block; Z79.02 Long term (current) use of antithrombotics/antiplatelets; Z72.0 Tobacco use | CPT/HCPCS: 99214 ==